=== PATIENT | male | born 1965 | race Two or more races ===

== ENCOUNTER 2016-11-11 03:08 | Inpatient (IN) | payer MEDICAID, OTHER, SELFPAY ==
[~2016-11-11] VITALS: Ht 188 cm; Wt 84.4 kg
[~2016-11-11 03:08] MED LIST: ADV250INH INH; ALBU1.25 INH; ALBU83IN INH; NICO21PAT TD; PRED20TAB PO; PROA1AER INH; SUDA30TA8 PO
[2016-11-11] MEDS ORDERED: IPRATROPIUM 0.5MG/ALBUTEROL 2.5MG INH SOL UD 3ML (DUONEB)(J7620) As Ordered ONE (03:54)
[2016-11-11 04:06] LABS: BASO # 0.2 K/mm3 (0.0-0.2); BASO % 1.5 % (0.0-1.0); EOS # 0.3 K/mm3 (0.0-0.50); EOS % 2.9 % (0.0-3.0); LARGE UNSTAINED CELL # 0.2 K/mm3 (0.0-0.4); LYMPH # 2.1 K/mm3 (1.5-4.5); LYMPH % 17.1 % (24.0-44.0); MEAN CORPUSCULAR HGB CONC 32.5 g/dl (32.0-36.5); MEAN CORPUSCULAR VOLUME 101.5 fl (80.0-96.0); MONO # 0.5 K/mm3 (0.0-0.8); MONO % 4.4 % (0.0-5.0); NEUTROPHILS # 7.8 K/mm3 (1.8-7.7); NEUTROPHILS % 72.1 % (36.0-66.0); PLATELET COUNT, AUTOMATED 286 k/mm3 (150-450); RED CELL DISTRIBUTION WIDTH 14.5 % (11.5-14.5); WHITE BLOOD COUNT 10.8 K/mm3 (4.0-10.0)
[2016-11-11] MEDS ORDERED: methylPREDNISolone INJ 125 MG/2 ML VIAL (J2930) As Ordered ONE (04:06)
[2016-11-11 04:26] LABS: ANION GAP 8 MEQ/L (8-16); BLOOD UREA NITROGEN 11 MG/DL (7-18); CALCIUM LEVEL 8.9 MG/DL (8.5-10.1); CARBON DIOXIDE LEVEL 30 MEQ/L (21-32); CHLORIDE LEVEL 107 MEQ/L (98-107); CREATININE FOR GFR 0.68 MG/DL (0.70-1.30); GLOMERULAR FILTRATION RATE > 60.0 (>56); GLUCOSE, FASTING 97 MG/DL (70-105); SODIUM LEVEL 145 MEQ/L (136-145)
[2016-11-11 04:31] LABS: ABG BASE EXCESS 1.8 (-2.0-2.0); ABG DEVICE NASAL CANN; ABG HCO3 27.2 MEQ/L (22.0-26.0); ABG PARTIAL PRESSURE CO2 45.1 mmHg (35.0-45.0); ABG TOTAL CO2 28.6 MEQ/L (22.0-29.0); ABG pH (ARTERIAL) 7.398 UNITS (7.350-7.450)
[2016-11-11 04:36] LABS: ALBUMIN 3.8 GM/DL (3.2-5.2); ALBUMIN/GLOBULIN RATIO 1.19 (1.00-1.93); ALKALINE PHOSPHATASE 86 U/L (45-117); ALT/SGPT 25 U/L (12-78); AST/SGOT 19 U/L (15-37); BILIRUBIN,DIRECT 0.1 MG/DL (0.0-0.2); BILIRUBIN,TOTAL 0.5 MG/DL (0.2-1.0)
[2016-11-11 05:24] LABS: AMPHETAMINES LEVEL URINE NEGATIVE (NEGATIVE); BENZODIAZEPINES URINE NEGATIVE (NEGATIVE); COCAINE METABOLITE URINE NEGATIVE (NEGATIVE); CONTROL LINE INT CTR LINE PRESENT; METHADONE URINE NEGATIVE (NEGATIVE); OPIATES URINE NEGATIVE (NEGATIVE); TRICYCLIC ANTIDEPRESS URINE NEGATIVE (NEGATIVE)
[2016-11-11] MEDS ORDERED: LevoFLOXacin 500 MG TABLET As Ordered ONE (05:57)
[2016-11-11] MEDS ORDERED: LevoFLOXacin 250 MG TABLET As Ordered ONE (05:57)
[2016-11-11] MEDS ORDERED: ALBUTEROL 90 MCG/ACT 8GM HFA INHALER As Ordered ONE (09:03)
--- NOTE | 2016-11-11 09:27 | ECGEPIP ---
Stationary ECG Study [facility] - ED Test Date: 2016-11-11 Pat Name: FANG TANNER Department: Room: - Gender: M Piecer Up: latricia : 1965 Requested By: SIOBHAN Dexter Order Number: [id number] Reading MD: Kane Ariza Measurements Intervals [place] Rate: 103 P: 76 UT: 139 QRS: 66 QRSD: 87 T: 64 QT: 332 QTc: 435 Interpretive Statements [employer] RBBB Electronically Signed On 11-11-2016 9:27:27 EST by Kane Ariza
--- NOTE | 2016-11-11 09:27 | REP ---
Chest x-ray: Two views. History: Cough. Comparison chest x-ray February 20, 2016. Findings: The lungs are hyperinflated consistent with some degree of COPD as before. Pleural angles are sharp. No infiltrate is seen. Oxygen delivery tubing is noted. Heart size is normal. Pulmonary vasculature is not increased. Impression: Hyperinflation consistent with COPD. No acute disease. Signed by Ousmane Knott MD 11/11/2016 10:23 A
[2016-11-11] MEDS ORDERED: predniSONE 20 MG TAB As Ordered ONE (18:34)
[2016-11-11] MEDS ORDERED: diphenhydrAMINE 25 MG CAP As Ordered ONE (22:16)
[2016-11-12] MEDS ORDERED: diphenhydrAMINE 25 MG CAP As Ordered ONE (03:57)
[2016-11-12] MEDS ORDERED: LevoFLOXacin 500 MG TABLET As Ordered ONE (07:52)
[2016-11-12] MEDS ORDERED: LevoFLOXacin 250 MG TABLET As Ordered ONE (07:52)
[2016-11-12] MEDS ORDERED: NICOTINE 21MG/24HR 1 EA TRANSDERMAL As Ordered ONE (11:08)
[2016-11-12] MEDS ORDERED: HYDR1TAB97 PO (12:52)
[2016-11-12] MEDS ORDERED: ALBU83IN INH (12:52)
[2016-11-12] MEDS ORDERED: ALBUTEROL 90 MCG/ACT 8GM HFA INHALER As Ordered ONE (13:04)
--- NOTE | 2016-11-12 14:00 | EDDOCDS ---
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 Assessment: Cooperative. kb5 03:30 Psych Safety Check: Location: Psych Room. Visual Assessment: Cooperative. kb5 03:34 Patient visited by Josr Segovia PCA. kb5 03:36 Patient visited by Bre Song RN. af2 03:45 Psych Safety Check: Location: Psych Room. Visual Assessment: Cooperative. kb5 03:46 Patient visited by Josr Segovia, SALES ACCOUNT LEADER. kb5 04:00 Psych Safety Check: Location: Psych Room. Visual Assessment: Cooperative. kb5 04:03 Patient visited by Lesli Segoviaopher SALES ACCOUNT LEADER. kb5 04:15 Patient visited by Lesli Segoviaopher SALES ACCOUNT LEADER. kb5 04:15 Psych Safety Check: Location: Psych Room. Visual Assessment: Cooperative. kb5 04:27 Patient visited by Erin Ulloa LPN. ka4 04:29 Patient visited by Erin Ulloa LPN. ka4 04:30 Patient visited by Josr Segovia SALES ACCOUNT LEADER. kb5 04:30 Psych Safety Check: Location: Psych Room. Visual Assessment: Cooperative. kb5 04:45 Psych Safety Check: Location: Psych Room. Visual Assessment: Cooperative. kb5 04:48 Patient visited by Josr Segovia SALES ACCOUNT LEADER. kb5 05:00 Psych Safety Check: Location: Psych Room. Visual Assessment: Cooperative. kb5 05:03 Patient visited by Josr Segovia SALES ACCOUNT LEADER. kb5 05:15 Patient visited by Josr Segovia SALES ACCOUNT LEADER. kb5 05:15 Psych Safety Check: Location: Psych Room. Visual Assessment: Cooperative. kb5 05:27 Patient visited by Erin Ulloa LPN. ka4 05:30 Patient visited by Josr Segovia SALES ACCOUNT LEADER. kb5 05:30 Psych Safety Check: Location: Psych Room. Visual Assessment: Cooperative. kb5 05:45 Patient visited by Bre Song RN. af2 05:45 Psych Safety Check: Location: Psych Room. Visual Assessment: Cooperative. kb5 05:46 Patient visited by Josr Segovia SALES ACCOUNT LEADER. kb5 06:00 Psych Safety Check: Location: Psych Room. Visual Assessment: Cooperative. kb5 06:08 Patient visited by Josr Segovia SALES ACCOUNT LEADER. kb5 06:15 Psych Safety Check: Location: Psych Room. Visual Assessment: Cooperative. kb5 06:16 Patient visited by Josr Segovia SALES ACCOUNT LEADER. kb5 06:19 Patient visited by Erin Ulloa LPN. ka4 06:30 Psych Safety Check: Location: Psych Room. Visual Assessment: Cooperative. kb5 06:31 Patient visited by Josr Segovia PCA. kb5 06:45 Psych Safety Check: Location: Psych Room. Visual Assessment: Cooperative. kb5 06:46 Patient visited by Josr Segovia PCA. kb5 07:01 Patient visited by Josr Segovia PCA. kb5 07:16 Patient visited by Jimy Roblero Security Aide. pjf 07:23 Primary Nurse role handed off by Erin Ulloa LPN deg 07:32 Patient visited by Jimy Roblero Security Aide. pjf 07:45 Psych Safety Check: Location: Psych Room. Visual Assessment: Cooperative. pjf 08:00 Psych Safety Check: Location: Psych Room. Visual Assessment: Cooperative. pjf 08:02 Patient visited by Alphonso Caballero RN. jmk 08:18 Patient visited by Jimy Roblero Security Aide. pjf 08:34 Patient visited by Surinder Dunbar. dem1 08:50 Patient visited by Surinder Dunbar. dem1 09:01 Patient visited by Jimy Roblero, Security Aide. pjf 09:15 Patient visited by Jimy Roblero, Security Aide. pjf 09:45 Psych Safety Check: Location: Psych Room. Visual Assessment: Cooperative. pjf 09:53 Patient visited by Jimy Roblero, Security Aide. pjf 10:16 Patient visited by Jimy Roblero, Security Aide. pjf 10:38 Patient visited by Jimy Roblero Security Aide. pjf 10:53 Patient visited by Jimy Roblero Security Aide. pjf 11:10 Patient visited by Jimy Roblero, Security Aide. pjf 11:56 Patient visited by Jimy Roblero, Security Aide. pjf 12:10 Attending Physician role handed off by Siobhan Guo DO br1 12:10 Luis Antonio Middleton MD is Attending Physician. br1 12:11 E Legal paperwork was scanned into [employer] and attached to record. ml4 12:12 Arsenio Raza is Hospitalizing Provider. br1 12:30 Patient visited by Vinita Oneil PCA. jlf 12:49 Patient visited by Jimy Roblero Security Aide. pjf 13:02 T-Sheet-- Draft Copy was scanned into [employer] and attached to record. gb 13:13 Patient visited by Jimy Roblero Security Aide. pjf 13:28 Patient visited by Jimy Roblero Security Aide. pjf 13:45 Patient visited by Jimy Roblero Security Aide. pjf 13:48 The patient / caregiver is instructed regarding the plan of care and ED course. mk4 13:48 No IV's were initiated during this patient's visit. No procedures done that require mk4 assistance. Administered Medications: 11/11 03:57 Drug: Albuterol-Ipratropium 1 neb [ipratropium-albuterol 0.5 mg-3 mg(2.5 mg base)/3 mL lf2 nebulization soln (1 neb)] Route: Nebulizer; 04:00 Drug: Albuterol-Ipratropium 1 neb [ipratropium-albuterol 0.5 mg-3 mg(2.5 mg base)/3 mL lf2 nebulization soln (1 neb)] Route: Nebulizer; 04:10 Drug: Albuterol-Ipratropium 1 neb [ipratropium-albuterol 0.5 mg-3 mg(2.5 mg base)/3 mL lf2 nebulization soln (1 neb)] Route: Nebulizer; 04:11 Drug: Solu-MEDROL 125 mg [Solu-Medrol 500 mg intravenous solution (125 mg)] Route: IVP; lf1 Site: left forearm; 06:28 Drug: levofloxacin 750 mg [levofloxacin 250 mg tablet (3 tabs)] {Note: 1-500mg tab and cp1 1-250mg tab given.} Route: PO; 09:08 Drug: Ventolin 2 puffs [Ventolin HFA 90 mcg/actuation aerosol inhaler (2 puffs)] Route: dsf Inhalation; 13:16 Drug: Ventolin 2 puffs [Ventolin HFA 90 mcg/actuation aerosol inhaler (2 puffs)] Route: dsf Inhalation; 17:00 Drug: Ventolin 2 puffs [Ventolin HFA 90 mcg/actuation aerosol inhaler (2 puffs)] Route: dsf Inhalation; 18:36 Drug: predniSONE 60 mg [prednisone 20 mg tablet (3 tabs)] Route: PO; dsf 21:50 Drug: Ventolin 2 puffs [Ventolin HFA 90 mcg/actuation aerosol inhaler (2 puffs)] Route: ka4 Inhalation; 22:19 Drug: diphenhydrAMINE 25 mg [diphenhydramine 25 mg capsule (1 caps)] Route: PO; ka4 11/12 01:57 Follow up: Response: No Adverse Reaction ka4 02:11 Drug: Ventolin 2 puffs [Ventolin HFA 90 mcg/actuation aerosol inhaler (2 puffs)] Route: ka4 Inhalation; 04:00 Drug: diphenhydrAMINE 25 mg [diphenhydramine 25 mg capsule (1 caps)] Route: PO; ka4 04:32 Follow up: Response: No Adverse Reaction; No significant change. ka4 05:56 Drug: Ventolin 2 puffs [Ventolin HFA 90 mcg/actuation aerosol inhaler (2 puffs)] Route: ka4 Inhalation; 07:59 Drug: levofloxacin 750 mg [levofloxacin 250 mg tablet (3 tabs)] Route: PO; k 11:18 Drug: Nicotine 1 applic [nicotine 21 mg/24 hr daily transdermal patch (1 patches)] 4 Route: Transdermal; Site: left upper arm; 13:10 Drug: Ventolin 2 puffs [Ventolin HFA 90 mcg/actuation aerosol inhaler (2 puffs)] Route: mk4 Inhalation; Attachments: 11/12 12:11 MHE Legal paperwork ml4 Intake: 11/11 14:42 PO: 360.00ml (Milk); Total: 360.00ml. dsf 14:42 PO: 240.00ml (Juice); Total: 600.00ml. dsf RT: 03:57 Initial Med Neb Given as ordered Patient was instructed and evaluated on procedure lf2 Patient tolerated procedure well without adverse effect. O2 via nasal cannula \\T\\ 2L/min. Respiratory: Airway is patent Respiratory effort is even, unlabored, relaxed, Respiratory pattern is regular symmetrical, trachea is midline 04:13 Subsequent Med Neb Given as ordered Patient tolerated procedure well without adverse lf2 effect. Respiratory: Breath sounds are diminished bilaterally. Breath sounds with wheezes bilaterally. 04:14 ABG's drawn from right radial artery allens test done and positive pressure held for 5 lf2 minutes no bleeding noted pressure bandage applied specimen sent pt. tolerated well. Subsequent Med Neb Given as ordered Patient tolerated procedure well without adverse effect. O2 via nasal cannula \\T\\ 2L/min. Respiratory: Breath sounds with wheezes bilaterally. at expiration. Order Results: Lab Order: -Blood Culture; SPEC'M 11/11/16 03:58 Test: BLOOD CULTURE; Value: No growth after 24 hours . All specimens observed; Status: F Test: BLOOD CULTURE; Value: for 7 days. Results final at that time.; Status: F Lab Order: B-Type Natiuretic Peptide; SPEC'M 11/11/16 03:58 Test: BRAIN NATRIURETIC PEPTIDE; Value: 16.7; Range: <100; Units: PG/ML; Status: F Lab Order: Basic Metabolic Profile; SPEC'M 11/11/16 03:58 Test: GLUCOSE, FASTING; Value: 97; Range: 70-105; Units: MG/DL; Status: F Test: BLOOD UREA NITROGEN; Value: 11; Range: 7-18; Units: MG/DL; Status: F Test: CREATININE FOR GFR; Value: 0.68; Range: 0.70-1.30; Abnormal: Below low normal; Units: MG/DL; Status: F Test: GLOMERULAR FILTRATION RATE; Value: > 60.0; Range: >56; Status: F Test: SODIUM LEVEL; Value: 145; Range: 136-145; Units: MEQ/L; Status: F Test: POTASSIUM SERUM; Value: 4.0; Range: 3.5-5.1; Units: MEQ/L; Status: F Test: CHLORIDE LEVEL; Value: 107; Range: 98-107; Units: MEQ/L; Status: F Test: CARBON DIOXIDE LEVEL; Value: 30; Range: 21-32; Units: MEQ/L; Status: F Test: ANION GAP; Value: 8; Range: 8-16; Units: MEQ/L; Status: F Test: CALCIUM LEVEL; Value: 8.9; Range: 8.5-10.1; Units: MG/DL; Status: F Test Note: ; Units are mL/min/1.73 m2 Chronic Kidney Disease Staging per NKF: Stage I & II GFR >=60 Normal to Mildly Decreased Stage III GFR 30-59 Moderately Decreased Stage IV GFR 15-29 Severely Decreased Stage V GFR <15 Very Little GFR Left ESRD GFR <15 on SECURITY ASSESSOR Lab Order: CBC with Diff; SPEC'M 11/11/16 03:58 Test: WHITE BLOOD COUNT; Value: 10.8; Range: 4.0-10.0; Abnormal: Above high normal; Units: K/mm3; Status: F Test: RED BLOOD COUNT; Value: 4.51; Range: 4.30-6.10; Units: M/mm3; Status: F Test: HEMOGLOBIN; Value: 14.9; Range: 14.0-18.0; Units: g/dl; Status: F Test: HEMATOCRIT; Value: 45.8; Range: 42.0-52.0; Units: %; Status: F Test: MEAN CORPUSCULAR VOLUME; Value: 101.5; Range: 80.0-96.0; Abnormal: Above high normal; Units: fl; Status: F Test: MEAN CORPUSCULAR HEMOGLOBIN; Value: 33.0; Range: 27.0-33.0; Units: pg; Status: F Test: MEAN CORPUSCULAR HGB CONC; Value: 32.5; Range: 32.0-36.5; Units: g/dl; Status: F Test: RED CELL DISTRIBUTION WIDTH; Value: 14.5; Range: 11.5-14.5; Units: %; Status: F Test: PLATELET COUNT, AUTOMATED; Value: 286; Range: 150-450; Units: k/mm3; Status: F Test: NEUTROPHILS %; Value: 72.1; Range: 36.0-66.0; Abnormal: Above high normal; Units: %; Status: F Test: LYMPH %; Value: 17.1; Range: 24.0-44.0; Abnormal: Below low normal; Units: %; Status: F Test: MONO %; Value: 4.4; Range: 0.0-5.0; Units: %; Status: F Test: EOS %; Value: 2.9; Range: 0.0-3.0; Units: %; Status: F Test: BASO %; Value: 1.5; Range: 0.0-1.0; Abnormal: Above high normal; Units: %; Status: F Test: LARGE UNSTAINED CELL %; Value: 2.0; Range: 0.0-4.0; Units: %; Status: F Test: NEUTROPHILS #; Value: 7.8; Range: 1.8-7.7; Abnormal: Above high normal; Units: K/mm3; Status: F Test: LYMPH #; Value: 2.1; Range: 1.5-4.5; Units: K/mm3; Status: F Test: MONO #; Value: 0.5; Range: 0.0-0.8; Units: K/mm3; Status: F Test: EOS #; Value: 0.3; Range: 0.0-0.50; Units: K/mm3; Status: F Test: BASO #; Value: 0.2; Range: 0.0-0.2; Units: K/mm3; Status: F Test: LARGE UNSTAINED CELL #; Value: 0.2; Range: 0.0-0.4; Units: K/mm3; Status: F Lab Order: -Arterial Blood Gas; [facility]' 11/11/16 03:57 Test: ABG pH (ARTERIAL); Value: 7.398; Range: 7.350-7.450; Units: UNITS; Status: F Test: ABG PARTIAL PRESSURE CO2; Value: 45.1; Range: 35.0-45.0; Abnormal: Above high normal; Units: mmHg; Status: F Test: ABG PARTIAL PRESSURE O2; Value: 74.0; Range: 75.0-100.0; Abnormal: Below low normal; Units: mmHg; Status: F Test: ABG TOTAL CO2; Value: 28.6; Range: 22.0-29.0; Units: MEQ/L; Status: F Test: ABG HCO3; Value: 27.2; Range: 22.0-26.0; Abnormal: Above high normal; Units: MEQ/L; Status: F Test: ABG BASE EXCESS; Value: 1.8; Range: -2.0-2.0; Status: F Test: ABG STANDARD HCO3; Value: 26.0; Range: 22.0-26.0; Units: MEQ/L; Status: F Test: ABG O2 SATURATION; Value: 94.9; Range: 95.0-99.0; Abnormal: Below low normal; Units: %; Status: F Test: ABG DEVICE; Value: NASAL COLT; Status: F Lab Order: Acetaminophen Level; SPEC'M 11/11/16 03:58 Test: ACETAMINOPHEN LEVEL; Value: < 2.0; Range: 10.0-30.0; Abnormal: Below low normal; Units: UG/ML; Status: F Lab Order: Drug Eval Toxicology ED Only; SPEC'M 11/11/16 05:06 Test: AMPHETAMINES LEVEL URINE; Value: NEGATIVE; Range: NEGATIVE; Status: F Test: BARBITURATES URINE; Value: NEGATIVE; Range: NEGATIVE; Status: F Test: BENZODIAZEPINES URINE; Value: NEGATIVE; Range: NEGATIVE; Status: F Test: CANNABINOIDS URINE; Value: NEGATIVE; Range: NEGATIVE; Status: F Test: COCAINE METABOLITE URINE; Value: NEGATIVE; Range: NEGATIVE; Status: F Test: METHADONE URINE; Value: NEGATIVE; Range: NEGATIVE; Status: F Test: OPIATES URINE; Value: NEGATIVE; Range: NEGATIVE; Status: F Test: TRICYCLIC ANTIDEPRESS URINE; Value: NEGATIVE; Range: NEGATIVE; Status: F Test Note: ; ALL PRESUMPTIVE POSITIVE FINDINGS ARE UNCONFIRMED NORMAL VALUES THRESHOLD IN NG/ML AMPHETAMINES 1000 METHAMPHETAMINES 1000 BARBITURATES 300 BENZODIAZEPINES 300 CANNABINOIDS (THC) 50 COCAINE METABOLITE 300 METHADONE 300 OPIATES 300 PHENCYCLIDINE 25 TRICYCLIC ANTIDEPRESSANTS 1000 RESULTS ARE FOR MEDICAL PURPOSES ONLY. ALL URINE SPECIMENS WILL BE SAVED FOR 3 DAYS. IF CONFIRMATION OF A PRESUMPTIVE POSTIVE SCREEN RESULT IS DESIRED, CALL CHEMISTRY ([phone]) AND REQUEST URINE TO BE SENT TO REFERENCE LAB. FOR A LIST OF CLOSELY RELATED COMPOUNDS PLEASE CALL THE LAB. Lab Order: Ethyl Alcohol (ethanol); SPEC'M 11/11/16 03:58 Test: ETHYL ALCOHOL (ETHANOL); Value: 0.110; Range: 0.000-0.010; Abnormal: Above high normal; Units: %; Status: F Lab Order: Liver Profile; SPEC'M 11/11/16 03:58 Test: AST/SGOT; Value: 19; Range: 15-37; Units: U/L; Status: F Test: ALT/SGPT; Value: 25; Range: 12-78; Units: U/L; Status: F Test: ALKALINE PHOSPHATASE; Value: 86; Range: 45-117; Units: U/L; Status: F Test: BILIRUBIN,TOTAL; Value: 0.5; Range: 0.2-1.0; Units: MG/DL; Status: F Test: BILIRUBIN,DIRECT; Value: 0.1; Range: 0.0-0.2; Units: MG/DL; Status: F Test: TOTAL PROTEIN; Value: 7.0; Range: 6.4-8.2; Units: GM/DL; Status: F Test: ALBUMIN; Value: 3.8; Range: 3.2-5.2; Units: GM/DL; Status: F Test: ALBUMIN/GLOBULIN RATIO; Value: 1.19; Range: 1.00-1.93; Status: F Lab Order: Salicylate Level; SPEC'M 11/11/16 03:58 Test: SALICYLATE LEVEL; Value: 2.1; Range: 5.0-30.0; Abnormal: Below low normal; Units: MG/DL; Status: F Lab Order: Thyroid Stimulating Hormone; SPEC'M 11/11/16 03:58 Test: THYROID STIMULATING HORMONE; Value: 1.190; Range: 0.358-3.740; Units: uIU/ML; Status: F Lab Order: BLOOD CULTURES; SPEC'M 11/11/16 03:58 Test: BLOOD CULTURE; Value: No growth after 24 hours . All specimens observed; Status: F Test: BLOOD CULTURE; Value: for 7 days. Results final at that time.; Status: F Radiology Order: Chest, 2 View (pa\\E\\lat) Test: Chest, 2 View (pa\\E\\lat) REASON FOR EXAMINATION: Cough; Chest x-ray: Two views.; ; History: Cough.; ; Comparison chest x-ray February 20, 2016.; ; Findings: The lungs are hyperinflated consistent with some degree of COPD as; before. Pleural angles are sharp. No infiltrate is seen. Oxygen delivery; tubing is noted. Heart size is normal. Pulmonary vasculature is not increased.; ; Impression:; ; Hyperinflation consistent with COPD. 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 RBBB; ; ; Electronically Signed On 11-11-2016 9:27:27 EST by Kane Ariza; Outcome: 11/12 12:12 Decision to Hospitalize by Provider. br1 13:47 Discharge Assessment: Patient awake, alert and oriented x 3. No cognitive and/or mk4 functional deficits noted. Patient verbalized understanding of disposition instructions. Patient awake and alert. patient administered narcotics - no. The following High Risk Discharge criteria are identified: None. Admitted to Psych accompanied by tech, via wheelchair, with chart. Condition: stable. No special radiology studies were completed. Property left with pt per riky PORTER. 13:59 Patient left the ED. mk4 Signatures: Dispatcher [employer] EDMS Matthew Arita MD MD ml Anita Hood, Warehouse Associate Driver Unit deg Alphonso Caballero,RN RN jmk Kori Lutz, PSA PSA rb Shilpa Monsalve, Reg Reg gb Annika, Jimy, Security Aide [facility], Ajay Silverman, Warehouse Associate Driver Unit ml3 Beatriz Duff, PSA PSA ml4 Josr Segovia, SALES ACCOUNT LEADER SALES ACCOUNT LEADER kb5 Beth Molina,RN RN lf1 Siobhan Guo, DO mm11 Luis Antonio Middleton MD MD br1 Pamella Henson,JUNIOR ORACLE DBA JUNIOR ORACLE DBA cp1 Christina Sparrow, SALES ACCOUNT LEADER SALES ACCOUNT LEADER Trinity Gar,RN RN dsf Mariam Grimm,RN RN Surinder Ji dem1 Eduar Kearney dpm Chiqui Devi, SALES ACCOUNT LEADER SALES ACCOUNT LEADER tmm1 Livia Pitts RN RN mk4 Vinita Oneil, SALES ACCOUNT LEADER SALES ACCOUNT LEADER jlf Erin Ulloa,JUNIOR ORACLE DBA JUNIOR ORACLE DBA ka4 Sahra Dickerson,RN RN mlc Bre Song,RN RN af2 Beth Manning,RT RT lf2 Viviana South, Reg Reg hs2 Joselito Felder, SALES ACCOUNT LEADER SALES ACCOUNT LEADER jmv Corrections: (The following items were deleted from the chart) 11/11 09:04 08:32 Mental Health history: rb rb 14:20 14:19 General: Appears to be sleeping. dsf dsf 14:19 Respiratory: Airway is patent Respiratory effort is even, unlabored, Respiratory dsf pattern is regular, symmetrical, dsf 14:19 Derm: Skin is pink, warm & dry. dsf dsf 11/12 12:09 09:10 Respiratory: Airway is patent Respiratory effort is even, unlabored, harsh non mk4 productive cough, requesting nitro patch mk4 MTDD
--- NOTE | 2016-11-12 14:00 | EDDOCDS ---
Physician Documentation [facility] Name: Godwin Amado Age: 50 yrs Sex: Male : 1965 Arrival Date: 11/11/2016 Time: 03:08 Bed OBSERVATION Private MD: NO PRIMARY PHYSICIAN, . Disposition: 11/12/16 12:12 Hospitalization ordered by Arsenio Raza for Inpatient Admission. Preliminary diagnosis are Suicidal ideations, Chronic obstructive pulmonary disease with (acute) exacerbation. - Bed requested for Admit. - Status is Inpatient Admission. mk4 - Condition is Stable. - Problem is new. - Symptoms are unchanged. Historical: - Allergies: No known drug Allergies; - Home Meds: 1. Albuterol nebs 2. albuterol inhaler 3. Vicodin 5/500 10mg Oral 7 or 8 per day - PMHx: Alcoholism; Colitis; COPD; Pneumonia; - PSHx: Appendectomy; Hernia repair; right arm surgery; - Social history: Smoking status: Patient uses tobacco products, current every day smoker. Patient uses alcohol Vicodin , No barriers to communication noted, The patient speaks fluent Ukrainian, Speaks appropriately for age, Preferred Language: Ukrainian. - Family history: Not pertinent. - : The pt / caregiver states he / she is not on anticoagulants. Home medication list is obtained from the patient. - Exposure Risk Screening:: None identified. Vital Signs: 11/11 03:10 BP 138 / 76 (auto/); lf1 03:12 Pulse 86 MON; Pulse Ox 94% ; lf1 03:14 BP 138 / 76; Pulse 88; Resp 25; Temp 96.9(O); Pulse Ox 94% on R/A; Weight 90.72 kg / jmv 200 lbs (R); Height 6 ft. 2 in. (187.96 cm) (R); Pain 0/10; 03:48 BP 180 / 91 (auto/); lf1 03:50 Pulse 90 MON; Pulse Ox 95% ; lf1 03:56 BP 171 / 86 (auto/); lf1 03:57 Pulse 90 MON; Pulse Ox 94% ; lf1 04:00 BP 168 / 89 (auto/); lf1 04:01 Pulse 90 MON; Resp 24; Pulse Ox 94% ; lf1 04:15 BP 144 / 89 (auto/); lf1 04:16 Pulse 86 MON; Pulse Ox 92% ; lf1 04:30 BP 151 / 98 (auto/); lf1 04:31 Pulse 90 MON; Pulse Ox 88% ; lf1 04:32 Pulse 90 MON; Pulse Ox 88% ; lf1 04:45 BP 129 / 60 (auto/); lf1 04:46 Pulse 82 MON; Pulse Ox 92% ; lf1 05:00 BP 156 / 86 (auto/); lf1 05:01 Pulse 80 MON; Pulse Ox 90% ; lf1 05:15 BP 155 / 76 (auto/); lf1 05:15 Pulse 98 MON; Pulse Ox 94% ; lf1 05:28 Pulse 98 MON; Resp 24; Pulse Ox 90% ; lf1 09:09 BP 175 / 95; Pulse 85; Resp 20; Temp 98.5(T); Pulse Ox 93% on R/A; Pain 0/10; dsf 13:21 BP 141 / 82; Pulse 95; Resp 20; Temp 96.5(T); Pulse Ox 93% on R/A; Pain 0/10; dsf 16:43 BP 158 / 66; Pulse 100; Resp 16; Temp 96.8(T); Pulse Ox 95% on R/A; Pain 0/10; dsf 21:59 BP 172 / 85 LA Sitting (auto/reg); Pulse 84 MON; Resp 18 S; Temp 98.1(T); Pulse Ox 94% ka4 on R/A; Pain 0/10; 11/12 05:56 BP 155 / 76; Pulse 73; Resp 22; Temp 98.8(O); Pulse Ox 94% on R/A; Pain 0/10; kb5 13:48 BP 152 / 80; Pulse 88; Resp 18; Temp 98; Pulse Ox 95% on R/A; mk4 11/11 03:14 Body Mass Index 25.68 (90.72 kg, 187.96 cm) darielav MDM: 11/11 03:35 Solu-MEDROL 125 mg IVP once ordered. mm11 03:35 -Blood Culture (Adults Only), peripheral from different site, or from device/port/PICC mm11 etc. if present ordered. 03:35 Call Respiratory ordered. mm11 03:35 Estate Attorney/Pulse Ox/q 15 min VS ordered. mm11 03:35 IV Saline Lock ordered. mm11 03:35 Oxygen at 4L/Min NC or Home dosage ordered. mm11 03:35 Rhythm Strip to chart ordered. mm11 03:35 Albuterol-Ipratropium 1 neb Nebulizer every 20 minutes x3 ordered. mm11 03:36 Consult PFS/PSA/Solar Applications Development Engineer ordered. mm11 03:36 Consult PFS/PSA/Solar Applications Development Engineer: Patient's case requires discussion with on-call mm11 Psychiatrist ordered. 03:36 PSA/PFS to call Nursing Dimensional Inspector, to enter patient data on [place] Safe [place] if patient mm11 involuntarily admitted or transferred for SI or HI ordered. 03:36 Confirm accurate psychiatric medication list and times of last dosage ordered. mm11 03:36 Detain Pt Until Medically/PFS Cleared ordered. mm11 03:36 -Blood Culture Ordered. EDMS 03:36 B-Type Natiuretic Peptide Ordered. EDMS 03:36 Basic Metabolic Profile Ordered. EDMS 03:36 CBC with Diff Ordered. EDMS 03:36 -Arterial Blood Gas Ordered. EDMS 03:37 ECG WITH READING ER PHYS+CARDIAG ordered. EDMS 03:37 Call Respiratory complete. ml3 03:37 Acetaminophen Level Ordered. EDMS 03:37 Drug Eval Toxicology ED Only Ordered. EDMS 03:37 Ethyl Alcohol (ethanol) Ordered. EDMS 03:37 Liver Profile Ordered. EDMS 03:37 Salicylate Level Ordered. EDMS 03:37 Thyroid Stimulating Hormone Ordered. EDMS 03:37 Chest, 2 View (pa\E\lat) Ordered. EDMS 03:40 BLOOD CULTURES Ordered. EDMS 03:40 -Blood Culture (Adults Only), peripheral from different site, or from device/port/PICC ml3 etc. if present complete. 04:54 Financial registration complete. hs2 05:02 Basic Metabolic Profile Reviewed. mm11 05:02 CBC with Diff Reviewed. mm11 05:02 -Arterial Blood Gas Reviewed. mm11 05:02 Acetaminophen Level Reviewed. mm11 05:02 Ethyl Alcohol (ethanol) Reviewed. mm11 05:02 Salicylate Level Reviewed. mm11 05:02 B-Type Natiuretic Peptide Reviewed. mm11 05:02 Liver Profile Reviewed. mm11 05:02 Thyroid Stimulating Hormone Reviewed. mm11 05:47 levofloxacin 750 mg PO once ordered. mm11 06:22 [facility] [place] was scanned into Carbonated Content and attached to record. hs2 06:30 REGULAR DIET PLASTIC STEPHENS+DIET ordered. EDMS 07:58 Drug Eval Toxicology ED Only Reviewed. mm11 08:22 ED course: pt signed out to me. cta when listening to lungs. pt with no complaints. ml pending psych disposition. pt with no complaints. mlg. 08:35 Ventolin Inhaler 2 puffs Inhalation every 4 hours ordered. ml 09:05 Consult PFS/PSA/Solar Applications Development Engineer complete. rb 10:09 Consult PFS/PSA/Solar Applications Development Engineer: Patient's case requires discussion with on-call rb Psychiatrist complete. 10:09 PSA/PFS to call Nursing Dimensional Inspector, to enter patient data [place] Safe [place] if patient rb involuntarily admitted or transferred for SI or HI complete. 11:18 REGULAR DIET PLASTIC STEPHENS+DIET ordered. EDMS 11:35 predniSONE 60 mg PO once; administer with food or milk ordered. ml 13:16 Ventolin Inhaler 2 puffs Inhalation once ordered. dsf 16:41 REGULAR DIET PLASTIC STEPHENS+DIET ordered. EDMS 16:58 Ventolin Inhaler 2 puffs Inhalation once ordered. dsf 19:24 Awaiting: The patient is awaiting psychiatric admission or transfer. All labs and mm11 investigations have been reviewed. The vital signs have been reviewed. The patient remains medically cleared for disposition. 21:50 Ventolin Inhaler 2 puffs Inhalation once ordered. ka4 22:07 diphenhydrAMINE 25 mg PO once ordered. mm11 11/12 02:01 Ventolin Inhaler 2 puffs Inhalation once ordered. ka4 03:53 diphenhydrAMINE 25 mg PO once ordered. mm11 04:08 -Blood Culture Reviewed. mm11 04:08 BLOOD CULTURES Reviewed. mm11 04:08 Chest, 2 View (pa\E\lat) Reviewed. mm11 04:08 EKG-ADULT Reviewed. mm11 04:33 REGULAR DIET ROOM SERVICE ED+DIET ordered. EDMS 05:56 Ventolin Inhaler 2 puffs Inhalation once ordered. ka4 07:04 levofloxacin 750 mg PO once ordered. mm11 11:05 REGULAR DIET PLASTIC STEPHENS+DIET ordered. EDMS 11:07 Nicotine Patch 21 mg/24 hr 1 applic Transdermal once ordered. mk4 11:48 REGULAR DIET ROOM SERVICE ED+DIET ordered. EDMS 12:10 Admit to [facility]: ordered. EDMS 12:11 [facility] Legal paperwork was scanned into Carbonated Content and attached to record. ml4 13:02 T-Sheet-- Draft Copy was scanned into Carbonated Content and attached to record. gb 13:10 Ventolin Inhaler 2 puffs Inhalation once ordered. mk4 Administered Medications: 11/11 03:57 Drug: Albuterol-Ipratropium 1 neb [ipratropium-albuterol 0.5 mg-3 mg(2.5 mg base)/3 mL lf2 nebulization soln (1 neb)] Route: Nebulizer; 04:00 Drug: Albuterol-Ipratropium 1 neb [ipratropium-albuterol 0.5 mg-3 mg(2.5 mg base)/3 mL lf2 nebulization soln (1 neb)] Route: Nebulizer; 04:10 Drug: Albuterol-Ipratropium 1 neb [ipratropium-albuterol 0.5 mg-3 mg(2.5 mg base)/3 mL lf2 nebulization soln (1 neb)] Route: Nebulizer; 04:11 Drug: Solu-MEDROL 125 mg [Solu-Medrol 500 mg intravenous solution (125 mg)] Route: IVP; lf1 Site: left forearm; 06:28 Drug: levofloxacin 750 mg [levofloxacin 250 mg tablet (3 tabs)] {Note: 1-500mg tab and cp1 1-250mg tab given.} Route: PO; 09:08 Drug: Ventolin 2 puffs [Ventolin HFA 90 mcg/actuation aerosol inhaler (2 puffs)] Route: dsf Inhalation; 13:16 Drug: Ventolin 2 puffs [Ventolin HFA 90 mcg/actuation aerosol inhaler (2 puffs)] Route: dsf Inhalation; 17:00 Drug: Ventolin 2 puffs [Ventolin HFA 90 mcg/actuation aerosol inhaler (2 puffs)] Route: dsf Inhalation; 18:36 Drug: predniSONE 60 mg [prednisone 20 mg tablet (3 tabs)] Route: PO; dsf 21:50 Drug: Ventolin 2 puffs [Ventolin HFA 90 mcg/actuation aerosol inhaler (2 puffs)] Route: ka4 Inhalation; 22:19 Drug: diphenhydrAMINE 25 mg [diphenhydramine 25 mg capsule (1 caps)] Route: PO; ka4 11/12 01:57 Follow up: Response: No Adverse Reaction 4 02:11 Drug: Ventolin 2 puffs [Ventolin HFA 90 mcg/actuation aerosol inhaler (2 puffs)] Route: ka4 Inhalation; 04:00 Drug: diphenhydrAMINE 25 mg [diphenhydramine 25 mg capsule (1 caps)] Route: PO; 4 04:32 Follow up: Response: No Adverse Reaction; No significant change. 4 05:56 Drug: Ventolin 2 puffs [Ventolin HFA 90 mcg/actuation aerosol inhaler (2 puffs)] Route: ka4 Inhalation; 07:59 Drug: levofloxacin 750 mg [levofloxacin 250 mg tablet (3 tabs)] Route: PO; [facility] 11:18 Drug: Nicotine 1 applic [nicotine 21 mg/24 hr daily transdermal patch (1 patches)] 4 Route: Transdermal; Site: left upper arm; 13:10 Drug: Ventolin 2 puffs [Ventolin HFA 90 mcg/actuation aerosol inhaler (2 puffs)] Route: mk4 Inhalation; Signatures: Dispatcher [employer] [facility] Matthew Arita MD MD ml Bolivar, Kori, PSA PSA rb Shilpa Monsalve, Reg Reg gb Ajay Cooley, Arts Administrator Unit ml3 Beatriz Duff, PSA PSA ml4 Beth Molina RN RN lf1 Lupillo Guo, DO CORBIN mm11 Luis Antonio Middleton MD MD br1 Trinity Narayan RN RN dsf Livia Pitts RN RN mk4 Erin Ulloa LPN FLAT EXAMINER ka4 Viviana South, Reg Reg hs2 Alphonso Caballero RN, Cheryl LPN cp1 Beth Manning RT lf2 The chart was reviewed and I authenticate all verbal orders and agree with the evaluation and treatment provided.Attachments: 11/11 06:22 [facility] Payment Agreement hs2 13:02 T-Sheet-- Draft Copy MTDD
[2016-11-12 14:56] VITALS: BP 164/80
[2016-11-12 15:35] VITALS: BP 164/80
[2016-11-12] MEDS ORDERED: LORazepam 2 MG TAB PO PRN (16:00)
[2016-11-12] MEDS ORDERED: MOM 30ML SUSPENSION UDC PO PRN (16:00)
[2016-11-12] MEDS ORDERED: THIAMINE 100 MG TAB PO ONE (16:15)
[2016-11-12] MEDS ORDERED: ALBUTEROL SULFATE 2.5 MG/0.5 ML INH NEB SOLN NEB PRN (16:15)
[2016-11-12] MEDS: ALBUTEROL 90 MCG/ACT 8GM HFA INHALER INH PRN (19:13)
[2016-11-12] MEDS: ACETAMINOPHEN TAB 650MG DOSE (2X325MG) PO PRN (22:55)
[2016-11-12] MEDS: traZODone 50 MG TAB PO PRN (22:55)
[2016-11-13 06:02] VITALS: BP 134/83
[2016-11-13] MEDS: ALBUTEROL 90 MCG/ACT 8GM HFA INHALER INH PRN ×2 (08:05→20:26)
[2016-11-13] MEDS: NICOTINE 21MG/24HR 1 EA TRANSDERMAL TD SCH (08:05)
[2016-11-13] MEDS: THIAMINE 100 MG TAB PO SCH ×2 (08:06→20:27)
[2016-11-13] MEDS: MULTIVITAMINS/MINERALS THERAP 1 TAB PO SCH (08:06)
[2016-11-13] MEDS: FOLIC ACID 1 MG TAB PO SCH (08:06)
[2016-11-13] MEDS: ACETAMINOPHEN TAB 650MG DOSE (2X325MG) PO PRN ×3 (08:06→23:06)
[2016-11-13 11:59] VITALS: BP 122/78
--- NOTE | 2016-11-13 11:59 | HPEPDOC ---
Medical History and Physical Date of Admission Nov 12, 2016 at 14:00 History and Physical PCP: [facility] ATTENDING: Dr. Don Harden HPI: 50yoM admitted to [facility] for depressive disorder unspecified, being medically examined today. Patient states he experiences chronic foot pain which has been ongoing many years since he experienced a crush injury to his feet followed by several surgeries. He states he has been treated for chronic pain in his feet and has been seen by pain management including Dr Bowie and more recently [facility] pain management. He has also seen many podiatrists. He has history of allergy to codeine and states he has been tried on Lyrica, gabapentin, Cymbalta all experiencing side effects. He states on his medication list he takes Vicodin 5/500 up to 7 or 8 tablets per day. He does admit that if he is not able to obtain enough tablets for his pain sometimes he will buy them on the street. He states up until the past few months he was using marijuana for his pain however he states he stopped using marijuana 3 months ago. The patient states he is aware that he has an "addictive personality", the patient states that he poured the remaining pills of his Vicodin down the sink prior to his admission. The patient states however that prior to his admission he took 2 tablets of Vicodin. Denies any fevers, chills, weakness, fatigue, LAWLER, CP, SOB, cough, palpitations, abdominal pain, N/V/D or changes in bowel or bladder habits. 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 5 brothers , 4 sisters history of COPD, CHF, one sibling in [place]. Children: Alive, well. ROS: As noted in HPI, otherwise 11pt ROS of systems reviewed and unremarkable PE: GEN: 50yoM, appears stated age. Well-nourished, well developed. No acute distress. Alert and oriented x 3. Pleasant, interactive. HEENT: Normocephalic, atraumatic. Pupils are equal, round, and reactive to light. Extraocular movements are intact. No nystagmus appreciated. Sclera are nonicteric. Conjunctiva without injection. Nose midline. Nasal turbinates without bogginess. EACs both patent BL. TMs both visualized and delgadillo with good cone of light, no bulging or erythema. No facial asymmetry. Moist mucous membranes. Dentition poor. Pharynx pink and moist, no cobblestoning. Neck supple , trachea midline. No lymphadenopathy or thyromegaly appreciated. CHEST: Regular rate and rhythm, +S1, +S2 LUNGS: Decreased BS bilaterally few expiratory wheezes scattered B/L. No rales, or rhonchi. Breathing appears symmetric and easy. Patient is speaking in full sentences. No accessory muscle use. ABD: Round, soft, non-tender, non-distended. +Bowel sounds throughout. No rebound or guarding. No costovertebral angle tenderness. EXT: Pulses 2+ bilaterally dorsalis pedis and radial. No lower extremity edema appreciated. SKIN: [place], dry, warm. Capillary refill <2sec. No rashes. NEURO: Alert and oriented x 3. Cranial nerves III-XII are intact. No focal deficits appreciated. EK11/11/16 sinus tachycardia, left atrial enlargement, incomplete right bundle branch block. A&P: 50yoM admitted to [facility] for depressive disorder unspecified 1. Psych. Plan per Psychiatry. EKG on file. 2. Nicotine dependence. Patch available. 3. Borderline EKG. No cardiac signs or symptoms appreciated on exam, follow with PCP. 4. Follow up with PCP on discharge. [facility]. 5. Substance use. Withdrawal per psychiatry. Continue with MVI, Thiamine, and Folic Acid supplementation. 6. COPD. Continue albuterol inhaler as needed. Continue albuterol nebulizer as needed. 7. Leukocytosis. Patient is asymptomatic. Afebrile. Recheck CBC in a.m. 8. Chronic pain/chronic foot pain. ISTOP reference number [id number]. Patient last received a prescription 4/26/16. This was for oxycodone 5 mg tablets, 12 tablets dispensed, 3 day supply. Patient does not appear to be receiving a routine prescription for Vicodin. Request a copy of last PCP note for our records. Will request pain management opinion as pt has followed with [facility] pain mgmt for this condition. UDS on admission negative for opiates. Continue Tylenol 650 mg every 4 hours as needed. Patient may also use ibuprofen 400 mg Q6 hr as needed. 9. Staff member present throughout exam, Ramses Monroy. Vital Signs Vital Signs Label Value Date Time Patient Temperature 97.2 degrees F 11/12/16 1456 Temperature Source Tympanic 11/12/16 1456 Pulse 82 11/12/16 1456 Respiratory Rate 20 bpm 11/12/16 1456 Blood Pressure Assessment 164/80 (108) 11/12/16 1456 Bedside Pulse Oximetry 94 % 11/12/16 1456 Patient Temperature 97.4 degrees F 11/13/16 0602 Temperature Source Tympanic 11/13/16 0602 Pulse 115 11/13/16 0602 Respiratory Rate 16 bpm 11/13/16 0602 Blood Pressure Assessment 134/83 (100) 11/13/16 0602 Pulse 82 11/12/16 1535 Blood Pressure Assessment 164/80 11/12/16 1535 Item Value Date Time Oxygen Delivery Method Room Air 11/12/16 1456 Laboratory Data Labs 24H Item Value Date Time Sodium Level 145 MEQ/L 11/11/16 0358 Potassium Level 4.0 MEQ/L 11/11/16 0358 Chloride Level 107 MEQ/L 11/11/16 0358 Carbon Dioxide Level 30 MEQ/L 11/11/16 0358 Anion Gap 8 MEQ/L 11/11/16 0358 Blood Urea Nitrogen 11 MG/DL 11/11/16 0358 Creatinine 0.68 MG/DL L 11/11/16 0358 Glomerular Filtration Rate > 60.0 11/11/16 0358 Fasting Glucose 97 MG/DL 11/11/16 0358 Calcium Level 8.9 MG/DL 11/11/16 0358 Total Bilirubin 0.5 MG/DL 11/11/16 0358 Direct Bilirubin 0.1 MG/DL 11/11/16 0358 Aspartate Amino Transf (AST/SGOT) 19 U/L 11/11/16 0358 Alanine Aminotransferase (ALT/SGPT) 25 U/L 1/8/17 0358 Alkaline Phosphatase 86 U/L 11/11/16357 Total Protein 7.0 GM/DL 11/11/16357 Albumin 3.8 GM/DL 11/11/16357 Albumin/Globulin Ratio 1.19 11/11/16357 Thyroid Stimulating Hormone (TSH) 1.190 uIU/ML 11/11/16357 White Blood Count 10.8 K/mm3 H 11/11/16357 Red Blood Count 4.51 M/mm3 11/11/16357 Hemoglobin 14.9 g/dl 11/11/16357 Hematocrit 45.8 % 11/11/16357 Mean Corpuscular Volume 101.5 fl H 11/11/16357 Mean Corpuscular Hemoglobin 33.0 pg 11/11/16357 Mean Corpuscular Hemoglobin Concent 32.5 g/dl 11/11/16357 Red Cell Distribution Width 14.5 % 11/11/16357 Platelet Count 286 k/mm3 11/11/16357 Neutrophils (%) (Auto) 72.1 % H 11/11/16357 Lymphocytes (%) (Auto) 17.1 % L 11/11/16357 Eosinophils (%) (Auto) 2.9 % 11/11/16357 Basophils (%) (Auto) 1.5 % H 11/11/16357 Large Unclassified Cells % 2.0 % 11/11/16357 Neutrophils # (Auto) 7.8 K/mm3 H 11/11/16357 Lymphocytes # (Auto) 2.1 K/mm3 11/11/16357 Monocytes # (Auto) 0.5 K/mm3 11/11/16357 Eosinophils # (Auto) 0.3 K/mm3 11/11/16357 Basophils # (Auto) 0.2 K/mm3 11/11/16357 Large Unclassified Cells # 0.2 K/mm3 11/11/16357 Salicylates Level 2.1 MG/DL L 11/11/16357 Urine Opiates Screen NEGATIVE 11/11/16 0506 Urine Methadone Screen NEGATIVE 11/11/16 0506 Acetaminophen Level < 2.0 UG/ML L 11/11/16357 Urine Barbiturates, Qualitative NEGATIVE 11/11/16 0506 Urine Tricyclic Antidepressants NEGATIVE 11/11/16 0506 Urine Amphetamine Level NEGATIVE 11/11/16 0506 Urine Benzodiazepines Screen NEGATIVE 11/11/16 0506 Urine Cocaine Metabolite NEGATIVE 11/11/16 0506 Urine Cannabinoids NEGATIVE 11/11/16 0506 Ethyl Alcohol Level 0.110 % H 11/11/16 0358 Microbiology Microbiology 11/11/16 Blood Culture - Preliminary, Resulted No Growth after 48 hours. All Specime... 11/11/16 Blood Culture - Preliminary, Resulted No Growth after 48 hours. All Specime... Home Medications Scheduled PRN Albuterol Sulfate (Proair Hfa) 108 Mcg/Act Aer 2 PUFFS INH Q4H PRN PRN SOB/ WHEEZING Albuterol Sulfate (Albuterol Sulfate) 2.5 Mg/3 Ml Nebu 2.5 MG INH Q4H PRN PRN SHORTNESS OF BREATH Allergies Coded Allergies: Codeine (Verified Adverse Reaction, Intermediate, ABDOMINAL PAIN, 02/08/13) No Known Allergies (Verified , 08/07/06) Naina Chen Nov 13, 2016 11:59
[2016-11-13 18:00] VITALS: BP 137/64
[2016-11-13 18:15] VITALS: BP 137/64
[2016-11-13] MEDS: IBUPROFEN 400 MG TAB PO PRN (20:27)
--- NOTE | 2016-11-13 20:51 | MHHPE ---
DATE OF ADMISSION: 11/12/2016 DATE OF SERVICE: 11/13/2016 CHIEF COMPLAINT: "I was in the emergency room because I couldn't breathe and when they asked if I was depressed and feeling like hurting myself, I said yes." HISTORY OF THE PRESENT ILLNESS: The patient is a 50-year-old Turkish man who presented to the emergency department after reportedly putting a gun in his mouth in a suicide bid but stopped after he had thought about the seriousness of such an action. He instead called 911 for help and was brought to the emergency department. The patient reports that he has had a long history of depression and alcohol abuse and had been drinking heavily all week leading to his emergency room visit. He says that he felt very guilty for relapsing into alcohol use, compounded by stressors that include severe financial difficulties, inability to buy holiday presents for his children and grandchildren and relational conflicts with his girlfriend. He reports that his depression characterized by depressed mood, insomnia, occasional feeling of hopelessness and helplessness has been on and off and he previously had benefited from treatment with Lexapro. However, he has not had the medication in more than 4 years due to problems affording to pay out of pocket as he has no health insurance coverage. PAST PSYCHIATRIC HISTORY: He reports suffering from depression since age 17 when he was incarcerated. He attempted to hang himself while in snf at the time and was admitted to [facility]. Upon release, he checked himself into [place] and was hospitalized for 2 weeks and treated for depression. He reports on and off outpatient treatment, mostly in combination with alcohol related treatment, including those at [facility] and [facility] on [facility] with Dr. Abdi. SUBSTANCE ABUSE HISTORY: As noted, he reports an extensive use of alcohol involving heavy consumption of beer and liquor. He reports that he was at some point, about 30 years prior, completely abstinent, having attended alcohol program that included A.A. However, he relapsed again about 5 years prior and from that time on, he has had occasional relapses. His current is that leading to the current admission when he started drinking heavily about a week prior to his emergency room visit. He reports withdrawal symptoms that include delirium tremens. He has had at least one alcohol-related conviction, the second involving altercation with police officers while drunk. In addition to alcohol use, he also reports extensive use of marijuana. He smokes more than a pack of cigarettes daily. MEDICAL HISTORY: He reports a history of bilateral foot trauma, chronic obstructive pulmonary disease (COPD) and previous treatment for hepatitis C. No reported allergies. SURGICAL HISTORY: Includes bilateral foot surgery, hernia repair and appendectomy. SOCIAL HISTORY: He reports that he graduated high school and had 2 years of college degree in [employer]. He was but currently . He has four children, all grown up and some grandchildren. He was born at [facility]. 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 LEGAL HISTORY: First arrest was at age 17 and the second was about 10 years ago for fighting police officers. No reported family history of mental illness or suicide. REVIEW OF SYSTEMS: Please refer to medical physician assistant director of public works's assessment for details. VITAL SIGNS: Blood pressure 134/83, pulse 98, respirations 16 and temperature 97.4. MENTAL STATUS EXAMINATION: The patient is of tall height and average build. He wears unkempt hair and appears slightly disheveled. He is calm and cooperative, alert and oriented to person, time and place. He relates in a respectful conversational manner. His speech is of normal volume, rate and rhythm. His thought process is coherent and goal directed. No evidence of delusions or hallucinations and no ideas of reference noted. He describes his mood as depressed. Affect is slightly restricted. He denies active suicidal thoughts, plan or intent as well as homicidal ideation. His insight is limited and judgment currently not impaired. Impulse control is presently adequate, although historically poor in terms of his repeated indulgence in substance. DIAGNOSES: 1. Unspecified depressive disorder. 2. Alcohol use disorder. 3. Cannabis use disorder. PROBLEM LIST: 1. Depression. 2. Risk for suicide. 3. Substance abuse. PLAN: 1. Admission to inpatient service. 2. Institution of proper safety precautions. 3. Pharmacological treatment. The patient will be started on Lexapro, a medication he previously had been on and reported some beneficial effects with. He was started at 20 mg orally daily for treatment of depression. Risks and benefits explained to the patient. He demonstrates understanding and consents to trial of the medication. In addition to medication management, psychotherapeutic interventions will form a mainstay of his treatment, including group, individual and activity therapies. Plan at the time of discharge will include establishing him with a facility equipped to provide both substance abuse treatment as well as management of his depressive symptoms. Estimated length of stay: 4-5 days. MTDD
[2016-11-13] MEDS: traZODone 50 MG TAB PO PRN (23:06)
[2016-11-14 06:37] VITALS: BP 139/85
[2016-11-14] MEDS: IBUPROFEN 400 MG TAB PO PRN ×3 (06:44→19:13)
[2016-11-14] MEDS: ALBUTEROL 90 MCG/ACT 8GM HFA INHALER INH PRN ×3 (07:37→19:12)
[2016-11-14 07:58] LABS: MEAN CORPUSCULAR HEMOGLOBIN 32.6 pg (27.0-33.0); MEAN CORPUSCULAR HGB CONC 32.1 g/dl (32.0-36.5); MEAN CORPUSCULAR VOLUME 101.4 fl (80.0-96.0); RED CELL DISTRIBUTION WIDTH 14.9 % (11.5-14.5); WHITE BLOOD COUNT 10.1 K/mm3 (4.0-10.0)
[2016-11-14] MEDS: THIAMINE 100 MG TAB PO SCH ×2 (08:39→20:42)
[2016-11-14] MEDS: ACETAMINOPHEN TAB 650MG DOSE (2X325MG) PO PRN ×3 (08:39→22:54)
[2016-11-14] MEDS: MULTIVITAMINS/MINERALS THERAP 1 TAB PO SCH (08:39)
[2016-11-14] MEDS: ESCITALOPRAM OXALATE 10 MG TAB (LEXAPRO) PO SCH (08:39)
[2016-11-14] MEDS: FOLIC ACID 1 MG TAB PO SCH (08:39)
[2016-11-14] MEDS: NICOTINE 21MG/24HR 1 EA TRANSDERMAL TD SCH (08:41)
[2016-11-14] MEDS ORDERED: INFLUENZA QUADRIVALENT PF VACCINE 0.5ML SYRINGE/VIAL (90686) IM ONE (09:00)
[2016-11-14 11:19] VITALS: BP 139/85
[2016-11-14 12:00] VITALS: BP 135/74
--- NOTE | 2016-11-14 15:00 | EDDOCDS ---
Physician Documentation [facility] Name: Godwin Amado Age: 50 yrs Sex: Male : 1965 Arrival Date: 11/11/2016 Time: 03:08 Bed OBSERVATION Private MD: NO PRIMARY PHYSICIAN, . Disposition: 11/12/16 12:12 Hospitalization ordered by Arsenio Raza for Inpatient Admission. Preliminary diagnosis are Suicidal ideations, Chronic obstructive pulmonary disease with (acute) exacerbation. - Bed requested for Admit. - Status is Inpatient Admission. mk4 - Condition is Stable. - Problem is new. - Symptoms are unchanged. Historical: - Allergies: No known drug Allergies; - Home Meds: 1. Albuterol nebs 2. albuterol inhaler 3. Vicodin 5/500 10mg Oral 7 or 8 per day - PMHx: Alcoholism; Colitis; COPD; Pneumonia; - PSHx: Appendectomy; Hernia repair; right arm surgery; - Social history: Smoking status: Patient uses tobacco products, current every day smoker. Patient uses alcohol Vicodin , No barriers to communication noted, The patient speaks fluent Ukrainian, Speaks appropriately for age, Preferred Language: Ukrainian. - Family history: Not pertinent. - : The pt / caregiver states he / she is not on anticoagulants. Home medication list is obtained from the patient. - Exposure Risk Screening:: None identified. Vital Signs: 11/11 03:10 BP 138 / 76 (auto/); lf1 03:12 Pulse 86 MON; Pulse Ox 94% ; lf1 03:14 BP 138 / 76; Pulse 88; Resp 25; Temp 96.9(O); Pulse Ox 94% on R/A; Weight 90.72 kg / jmv 200 lbs (R); Height 6 ft. 2 in. (187.96 cm) (R); Pain 0/10; 03:48 BP 180 / 91 (auto/); lf1 03:50 Pulse 90 MON; Pulse Ox 95% ; lf1 03:56 BP 171 / 86 (auto/); lf1 03:57 Pulse 90 MON; Pulse Ox 94% ; lf1 04:00 BP 168 / 89 (auto/); lf1 04:01 Pulse 90 MON; Resp 24; Pulse Ox 94% ; lf1 04:15 BP 144 / 89 (auto/); lf1 04:16 Pulse 86 MON; Pulse Ox 92% ; lf1 04:30 BP 151 / 98 (auto/); lf1 04:31 Pulse 90 MON; Pulse Ox 88% ; lf1 04:32 Pulse 90 MON; Pulse Ox 88% ; lf1 04:45 BP 129 / 60 (auto/); lf1 04:46 Pulse 82 MON; Pulse Ox 92% ; lf1 05:00 BP 156 / 86 (auto/); lf1 05:01 Pulse 80 MON; Pulse Ox 90% ; lf1 05:15 BP 155 / 76 (auto/); lf1 05:15 Pulse 98 MON; Pulse Ox 94% ; lf1 05:28 Pulse 98 MON; Resp 24; Pulse Ox 90% ; lf1 09:09 BP 175 / 95; Pulse 85; Resp 20; Temp 98.5(T); Pulse Ox 93% on R/A; Pain 0/10; dsf 13:21 BP 141 / 82; Pulse 95; Resp 20; Temp 96.5(T); Pulse Ox 93% on R/A; Pain 0/10; dsf 16:43 BP 158 / 66; Pulse 100; Resp 16; Temp 96.8(T); Pulse Ox 95% on R/A; Pain 0/10; dsf 21:59 BP 172 / 85 LA Sitting (auto/reg); Pulse 84 MON; Resp 18 S; Temp 98.1(T); Pulse Ox 94% ka4 on R/A; Pain 0/10; 11/12 05:56 BP 155 / 76; Pulse 73; Resp 22; Temp 98.8(O); Pulse Ox 94% on R/A; Pain 0/10; kb5 13:48 BP 152 / 80; Pulse 88; Resp 18; Temp 98; Pulse Ox 95% on R/A; mk4 11/11 03:14 Body Mass Index 25.68 (90.72 kg, 187.96 cm) darielav MDM: 11/11 03:35 Solu-MEDROL 125 mg IVP once ordered. mm11 03:35 -Blood Culture (Adults Only), peripheral from different site, or from device/port/PICC mm11 etc. if present ordered. 03:35 Call Respiratory ordered. mm11 03:35 Accounting Machine Mechanic/Pulse Ox/q 15 min VS ordered. mm11 03:35 IV Saline Lock ordered. mm11 03:35 Oxygen at 4L/Min NC or Home dosage ordered. mm11 03:35 Rhythm Strip to chart ordered. mm11 03:35 Albuterol-Ipratropium 1 neb Nebulizer every 20 minutes x3 ordered. mm11 03:36 Consult PFS/PSA/Power Saw Mechanic ordered. mm11 03:36 Consult PFS/PSA/Power Saw Mechanic: Patient's case requires discussion with on-call mm11 Psychiatrist ordered. 03:36 PSA/PFS to call Nursing Rn Relief Charge, to enter patient data on [place] Safe Act if patient mm11 involuntarily admitted or transferred for SI or HI ordered. 03:36 Confirm accurate psychiatric medication list and times of last dosage ordered. mm11 03:36 Detain Pt Until Medically/PFS Cleared ordered. mm11 03:36 -Blood Culture Ordered. EDMS 03:36 B-Type Natiuretic Peptide Ordered. EDMS 03:36 Basic Metabolic Profile Ordered. EDMS 03:36 CBC with Diff Ordered. EDMS 03:36 -Arterial Blood Gas Ordered. EDMS 03:37 ECG WITH READING ER PHYS+CARDIAG ordered. EDMS 03:37 Call Respiratory complete. ml3 03:37 Acetaminophen Level Ordered. EDMS 03:37 Drug Eval Toxicology ED Only Ordered. EDMS 03:37 Ethyl Alcohol (ethanol) Ordered. EDMS 03:37 Liver Profile Ordered. EDMS 03:37 Salicylate Level Ordered. EDMS 03:37 Thyroid Stimulating Hormone Ordered. EDMS 03:37 Chest, 2 View (pa\E\lat) Ordered. EDMS 03:40 BLOOD CULTURES Ordered. EDMS 03:40 -Blood Culture (Adults Only), peripheral from different site, or from device/port/PICC ml3 etc. if present complete. 04:54 Financial registration complete. hs2 05:02 Basic Metabolic Profile Reviewed. mm11 05:02 CBC with Diff Reviewed. mm11 05:02 -Arterial Blood Gas Reviewed. mm11 05:02 Acetaminophen Level Reviewed. mm11 05:02 Ethyl Alcohol (ethanol) Reviewed. mm11 05:02 Salicylate Level Reviewed. mm11 05:02 B-Type Natiuretic Peptide Reviewed. mm11 05:02 Liver Profile Reviewed. mm11 05:02 Thyroid Stimulating Hormone Reviewed. mm11 05:47 levofloxacin 750 mg PO once ordered. mm11 06:22 [facility] Payment Agreement was scanned into Logly and attached to record. hs2 06:30 REGULAR DIET PLASTIC STEPHENS+DIET ordered. EDMS 07:58 Drug Eval Toxicology ED Only Reviewed. mm11 08:22 ED course: pt signed out to me. cta when listening to lungs. pt with no complaints. ml pending psych disposition. pt with no complaints. mlg. 08:35 Ventolin Inhaler 2 puffs Inhalation every 4 hours ordered. ml 09:05 Consult PFS/PSA/Power Saw Mechanic complete. rb 10:09 Consult PFS/PSA/Power Saw Mechanic: Patient's case requires discussion with on-call rb Psychiatrist complete. 10:09 PSA/PFS to call Nursing Rn Relief Charge, to enter patient data [place] Safe [place] if patient rb involuntarily admitted or transferred for SI or HI complete. 11:18 REGULAR DIET PLASTIC STEPHENS+DIET ordered. EDMS 11:35 predniSONE 60 mg PO once; administer with food or milk ordered. ml 13:16 Ventolin Inhaler 2 puffs Inhalation once ordered. dsf 16:41 REGULAR DIET PLASTIC STEPHENS+DIET ordered. EDMS 16:58 Ventolin Inhaler 2 puffs Inhalation once ordered. dsf 19:24 Awaiting: The patient is awaiting psychiatric admission or transfer. All labs and mm11 investigations have been reviewed. The vital signs have been reviewed. The patient remains medically cleared for disposition. 21:50 Ventolin Inhaler 2 puffs Inhalation once ordered. ka4 22:07 diphenhydrAMINE 25 mg PO once ordered. mm11 11/12 02:01 Ventolin Inhaler 2 puffs Inhalation once ordered. ka4 03:53 diphenhydrAMINE 25 mg PO once ordered. mm11 04:08 -Blood Culture Reviewed. mm11 04:08 BLOOD CULTURES Reviewed. mm11 04:08 Chest, 2 View (pa\E\lat) Reviewed. mm11 04:08 EKG-ADULT Reviewed. mm11 04:33 REGULAR DIET ROOM SERVICE ED+DIET ordered. EDMS 05:56 Ventolin Inhaler 2 puffs Inhalation once ordered. ka4 07:04 levofloxacin 750 mg PO once ordered. mm11 11:05 REGULAR DIET PLASTIC STEPHENS+DIET ordered. EDMS 11:07 Nicotine Patch 21 mg/24 hr 1 applic Transdermal once ordered. mk4 11:48 REGULAR DIET ROOM SERVICE ED+DIET ordered. EDMS 12:10 Admit to [facility]: ordered. EDMS 12:11 [facility] Legal paperwork was scanned into Logly and attached to record. ml4 13:02 T-Sheet-- Draft Copy was scanned into Logly and attached to record. gb 13:10 Ventolin Inhaler 2 puffs Inhalation once ordered. mk4 11/13 13:51 ECG/EKG was scanned into Log[employer] and attached to record. gb Administered Medications: 11/11 03:57 Drug: Albuterol-Ipratropium 1 neb [ipratropium-albuterol 0.5 mg-3 mg(2.5 mg base)/3 mL lf2 nebulization soln (1 neb)] Route: Nebulizer; 04:00 Drug: Albuterol-Ipratropium 1 neb [ipratropium-albuterol 0.5 mg-3 mg(2.5 mg base)/3 mL lf2 nebulization soln (1 neb)] Route: Nebulizer; 04:10 Drug: Albuterol-Ipratropium 1 neb [ipratropium-albuterol 0.5 mg-3 mg(2.5 mg base)/3 mL lf2 nebulization soln (1 neb)] Route: Nebulizer; 04:11 Drug: Solu-MEDROL 125 mg [Solu-Medrol 500 mg intravenous solution (125 mg)] Route: IVP; lf1 Site: left forearm; 06:28 Drug: levofloxacin 750 mg [levofloxacin 250 mg tablet (3 tabs)] {Note: 1-500mg tab and cp1 1-250mg tab given.} Route: PO; 09:08 Drug: Ventolin 2 puffs [Ventolin HFA 90 mcg/actuation aerosol inhaler (2 puffs)] Route: dsf Inhalation; 13:16 Drug: Ventolin 2 puffs [Ventolin HFA 90 mcg/actuation aerosol inhaler (2 puffs)] Route: dsf Inhalation; 17:00 Drug: Ventolin 2 puffs [Ventolin HFA 90 mcg/actuation aerosol inhaler (2 puffs)] Route: dsf Inhalation; 18:36 Drug: predniSONE 60 mg [prednisone 20 mg tablet (3 tabs)] Route: PO; dsf 21:50 Drug: Ventolin 2 puffs [Ventolin HFA 90 mcg/actuation aerosol inhaler (2 puffs)] Route: ka4 Inhalation; 22:19 Drug: diphenhydrAMINE 25 mg [diphenhydramine 25 mg capsule (1 caps)] Route: PO; 4 11/12 01:57 Follow up: Response: No Adverse Reaction [facility] 02:11 Drug: Ventolin 2 puffs [Ventolin HFA 90 mcg/actuation aerosol inhaler (2 puffs)] Route: ka4 Inhalation; 04:00 Drug: diphenhydrAMINE 25 mg [diphenhydramine 25 mg capsule (1 caps)] Route: PO; [facility] 04:32 Follow up: Response: No Adverse Reaction; No significant change. [facility] 05:56 Drug: Ventolin 2 puffs [Ventolin HFA 90 mcg/actuation aerosol inhaler (2 puffs)] Route: ka4 Inhalation; 07:59 Drug: levofloxacin 750 mg [levofloxacin 250 mg tablet (3 tabs)] Route: PO; [facility] 11:18 Drug: Nicotine 1 applic [nicotine 21 mg/24 hr daily transdermal patch (1 patches)] 4 Route: Transdermal; Site: left upper arm; 13:10 Drug: Ventolin 2 puffs [Ventolin HFA 90 mcg/actuation aerosol inhaler (2 puffs)] Route: 4 Inhalation; Signatures: Dispatcher [employer] EDMN Matthew Arita MD MD ml Kori Lutz, PSA PSA rb Shilpa Monsalve, Reg Reg gb Lenora KamalaRachaelJoan, Product Marketing Coordinator Unit ml3 Beatriz Duff, PSA PSA ml4 Beth Molina,RN RN lf1 Lupillo Guo DO DO mm11 Luis Antonio Middleton MD MD br1 Trinity NarayanRN RN dsf Livia Pitts RN RN mk4 Erin Ulloa LPN LPN ka4 Viviana South, Reg Reg hs2 Alphonso Caballero RNk Pamella Henson LPN cp1 Beth Manning RT lf2 The chart was reviewed and I authenticate all verbal orders and agree with the evaluation and treatment provided.Attachments: 11/11 06:22 [facility] Payment Agreement hs2 13:02 T-Sheet-- Draft Copy 11/13 13:51 ECG/EKG Chart Complete MTDD
--- NOTE | 2016-11-14 15:00 | EDDOCDS ---
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 Visual Assessment: Sleeping. tmm1 03:00 Psych Safety Check: Location: Psych Room. Visual Assessment: Cooperative. kb5 03:13 Patient visited by Josr Segovia PCA. kb5 03:15 Psych Safety Check: Location: Psych Room. Visual Assessment: Cooperative. kb5 03:30 Psych Safety Check: Location: Psych Room. Visual Assessment: Cooperative. kb5 03:34 Patient visited by Josr Segovia MAIL PROCESSING MACHINE OPERATOR. kb5 03:36 Patient visited by Bre Song RN. af2 03:45 Psych Safety Check: Location: Psych Room. Visual Assessment: Cooperative. kb5 03:46 Patient visited by Josephine Segoviaer MAIL PROCESSING MACHINE OPERATOR. kb5 04:00 Psych Safety Check: Location: Psych Room. Visual Assessment: Cooperative. kb5 04:03 Patient visited by Josr Segovia MAIL PROCESSING MACHINE OPERATOR. kb5 04:15 Patient visited by Lesli Segoviaopher MAIL PROCESSING MACHINE OPERATOR. kb5 04:15 Psych Safety Check: Location: Psych Room. Visual Assessment: Cooperative. kb5 04:27 Patient visited by Erin Ulloa LPN. ka4 04:29 Patient visited by Erin Ulloa LPN. ka4 04:30 Patient visited by Josr Segovia MAIL PROCESSING MACHINE OPERATOR. kb5 04:30 Psych Safety Check: Location: Psych Room. Visual Assessment: Cooperative. kb5 04:45 Psych Safety Check: Location: Psych Room. Visual Assessment: Cooperative. kb5 04:48 Patient visited by Josr Segovia MAIL PROCESSING MACHINE OPERATOR. kb5 05:00 Psych Safety Check: Location: Psych Room. Visual Assessment: Cooperative. kb5 05:03 Patient visited by Josr Segovia MAIL PROCESSING MACHINE OPERATOR. kb5 05:15 Patient visited by Josr Segovia MAIL PROCESSING MACHINE OPERATOR. kb5 05:15 Psych Safety Check: Location: Psych Room. Visual Assessment: Cooperative. kb5 05:27 Patient visited by Erin Ulloa LPN. ka4 05:30 Patient visited by Josr Segovia MAIL PROCESSING MACHINE OPERATOR. kb5 05:30 Psych Safety Check: Location: Psych Room. Visual Assessment: Cooperative. kb5 05:45 Patient visited by Ber Song RN. af2 05:45 Psych Safety Check: Location: Psych Room. Visual Assessment: Cooperative. kb5 05:46 Patient visited by Josr Segovia MAIL PROCESSING MACHINE OPERATOR. kb5 06:00 Psych Safety Check: Location: Psych Room. Visual Assessment: Cooperative. kb5 06:08 Patient visited by Josr Segovia MAIL PROCESSING MACHINE OPERATOR. kb5 06:15 Psych Safety Check: Location: Psych Room. Visual Assessment: Cooperative. kb5 06:16 Patient visited by Josr Segovia PCA. kb5 06:19 Patient visited by Erin Ulloa LPN. ka4 06:30 Psych Safety Check: Location: Psych Room. Visual Assessment: Cooperative. kb5 06:31 Patient visited by Josr Segovia MAIL PROCESSING MACHINE OPERATOR. kb5 06:45 Psych Safety Check: Location: Psych Room. Visual Assessment: Cooperative. kb5 06:46 Patient visited by Josr Segovia MAIL PROCESSING MACHINE OPERATOR. kb5 07:01 Patient visited by Josr Segovia PCA. kb5 07:16 Patient visited by Jimy Roblero Security Aide. pjf 07:23 Primary Nurse role handed off by Erin Ulloa LPN deg 07:32 Patient visited by Jimy Roblero Security Aide. pjf 07:45 Psych Safety Check: Location: Psych Room. Visual Assessment: Cooperative. pjf 08:00 Psych Safety Check: Location: Psych Room. Visual Assessment: Cooperative. pjf 08:02 Patient visited by Alphonso Caballero RN. jmk 08:18 Patient visited by Jimy Roblero Security Aide. pjf 08:34 Patient visited by Surinder Dunbar. dem1 08:50 Patient visited by Surinder Dunbar. dem1 09:01 Patient visited by Jimy Roblero, Security Aide. pjf 09:15 Patient visited by Jimy Roblero, Security Aide. pjf 09:45 Psych Safety Check: Location: Psych Room. Visual Assessment: Cooperative. pjf 09:53 Patient visited by Jimy Roblero, Security Aide. pjf 10:16 Patient visited by Jimy Roblero, Security Aide. pjf 10:38 Patient visited by Jimy Roblero, Security Aide. pjf 10:53 Patient visited by Jimy Roblero, Security Aide. pjf 11:10 Patient visited by Jimy Roblero, Security Aide. pjf 11:56 Patient visited by Jimy Roblero, Security Aide. pjf 12:10 Attending Physician role handed off by Siobhan Guo DO br1 12:10 Luis Antonio Middleton MD is Attending Physician. br1 12:11 E Legal paperwork was scanned into emere and attached to record. ml4 12:12 Arsenio Raza is Hospitalizing Provider. br1 12:30 Patient visited by Vinita Oneil PCA. jlf 12:49 Patient visited by Jimy Roblero Security Aide. pjf 13:02 T-Sheet-- Draft Copy was scanned into emere and attached to record. gb 13:13 Patient visited by Jimy Roblero Security Aide. pjf 13:28 Patient visited by Jimy Roblero Security Aide. pjf 13:45 Patient visited by Jimy Roblero Security Aide. pjf 13:48 The patient / caregiver is instructed regarding the plan of care and ED course. mk4 13:48 No IV's were initiated during this patient's visit. No procedures done that require mk4 assistance. 11/13 13:51 ECG/EKG was scanned into emere and attached to record. gb Administered Medications: 11/11 03:57 Drug: Albuterol-Ipratropium 1 neb [ipratropium-albuterol 0.5 mg-3 mg(2.5 mg base)/3 mL lf2 nebulization soln (1 neb)] Route: Nebulizer; 04:00 Drug: Albuterol-Ipratropium 1 neb [ipratropium-albuterol 0.5 mg-3 mg(2.5 mg base)/3 mL lf2 nebulization soln (1 neb)] Route: Nebulizer; 04:10 Drug: Albuterol-Ipratropium 1 neb [ipratropium-albuterol 0.5 mg-3 mg(2.5 mg base)/3 mL lf2 nebulization soln (1 neb)] Route: Nebulizer; 04:11 Drug: Solu-MEDROL 125 mg [Solu-Medrol 500 mg intravenous solution (125 mg)] Route: IVP; lf1 Site: left forearm; 06:28 Drug: levofloxacin 750 mg [levofloxacin 250 mg tablet (3 tabs)] {Note: 1-500mg tab and cp1 1-250mg tab given.} Route: PO; 09:08 Drug: Ventolin 2 puffs [Ventolin HFA 90 mcg/actuation aerosol inhaler (2 puffs)] Route: dsf Inhalation; 13:16 Drug: Ventolin 2 puffs [Ventolin HFA 90 mcg/actuation aerosol inhaler (2 puffs)] Route: dsf Inhalation; 17:00 Drug: Ventolin 2 puffs [Ventolin HFA 90 mcg/actuation aerosol inhaler (2 puffs)] Route: dsf Inhalation; 18:36 Drug: predniSONE 60 mg [prednisone 20 mg tablet (3 tabs)] Route: PO; dsf 21:50 Drug: Ventolin 2 puffs [Ventolin HFA 90 mcg/actuation aerosol inhaler (2 puffs)] Route: ka4 Inhalation; 22:19 Drug: diphenhydrAMINE 25 mg [diphenhydramine 25 mg capsule (1 caps)] Route: PO; ka4 11/12 01:57 Follow up: Response: No Adverse Reaction ka4 02:11 Drug: Ventolin 2 puffs [Ventolin HFA 90 mcg/actuation aerosol inhaler (2 puffs)] Route: ka4 Inhalation; 04:00 Drug: diphenhydrAMINE 25 mg [diphenhydramine 25 mg capsule (1 caps)] Route: PO; ka4 04:32 Follow up: Response: No Adverse Reaction; No significant change. ka4 05:56 Drug: Ventolin 2 puffs [Ventolin HFA 90 mcg/actuation aerosol inhaler (2 puffs)] Route: ka4 Inhalation; 07:59 Drug: levofloxacin 750 mg [levofloxacin 250 mg tablet (3 tabs)] Route: PO; jmk 11:18 Drug: Nicotine 1 applic [nicotine 21 mg/24 hr daily transdermal patch (1 patches)] 4 Route: Transdermal; Site: left upper arm; 13:10 Drug: Ventolin 2 puffs [Ventolin HFA 90 mcg/actuation aerosol inhaler (2 puffs)] Route: mk4 Inhalation; Attachments: 11/12 12:11 MHE Legal paperwork ml4 Intake: 11/11 14:42 PO: 360.00ml (Milk); Total: 360.00ml. dsf 14:42 PO: 240.00ml (Juice); Total: 600.00ml. dsf RT: 03:57 Initial Med Neb Given as ordered Patient was instructed and evaluated on procedure lf2 Patient tolerated procedure well without adverse effect. O2 via nasal cannula \\T\\ 2L/min. Respiratory: Airway is patent Respiratory effort is even, unlabored, relaxed, Respiratory pattern is regular symmetrical, trachea is midline 04:13 Subsequent Med Neb Given as ordered Patient tolerated procedure well without adverse lf2 effect. Respiratory: Breath sounds are diminished bilaterally. Breath sounds with wheezes bilaterally. 04:14 ABG's drawn from right radial artery allens test done and positive pressure held for 5 lf2 minutes no bleeding noted pressure bandage applied specimen sent pt. tolerated well. Subsequent Med Neb Given as ordered Patient tolerated procedure well without adverse effect. O2 via nasal cannula \\T\\ 2L/min. Respiratory: Breath sounds with wheezes bilaterally. at expiration. Order Results: Lab Order: -Blood Culture; SPEC'M 11/11/16 03:58 Test: BLOOD CULTURE; Value: No growth after 24 hours . All specimens observed; Status: F Test: BLOOD CULTURE; Value: for 7 days. Results final at that time.; Status: F Lab Order: B-Type Natiuretic Peptide; SPEC'M 11/11/16 03:58 Test: BRAIN NATRIURETIC PEPTIDE; Value: 16.7; Range: <100; Units: PG/ML; Status: F Lab Order: Basic Metabolic Profile; SPEC'M 11/11/16 03:58 Test: GLUCOSE, FASTING; Value: 97; Range: 70-105; Units: MG/DL; Status: F Test: BLOOD UREA NITROGEN; Value: 11; Range: 7-18; Units: MG/DL; Status: F Test: CREATININE FOR GFR; Value: 0.68; Range: 0.70-1.30; Abnormal: Below low normal; Units: MG/DL; Status: F Test: GLOMERULAR FILTRATION RATE; Value: > 60.0; Range: >56; Status: F Test: SODIUM LEVEL; Value: 145; Range: 136-145; Units: MEQ/L; Status: F Test: POTASSIUM SERUM; Value: 4.0; Range: 3.5-5.1; Units: MEQ/L; Status: F Test: CHLORIDE LEVEL; Value: 107; Range: 98-107; Units: MEQ/L; Status: F Test: CARBON DIOXIDE LEVEL; Value: 30; Range: 21-32; Units: MEQ/L; Status: F Test: ANION GAP; Value: 8; Range: 8-16; Units: MEQ/L; Status: F Test: CALCIUM LEVEL; Value: 8.9; Range: 8.5-10.1; Units: MG/DL; Status: F Test Note: ; Units are mL/min/1.73 m2 Chronic Kidney Disease Staging per NKF: Stage I & II GFR >=60 Normal to Mildly Decreased Stage III GFR 30-59 Moderately Decreased Stage IV GFR 15-29 Severely Decreased Stage V GFR <15 Very Little GFR Left ESRD GFR <15 on [facility] Lab Order: CBC with Diff; SPEC'M 11/11/16 03:58 Test: WHITE BLOOD COUNT; Value: 10.8; Range: 4.0-10.0; Abnormal: Above high normal; Units: K/mm3; Status: F Test: RED BLOOD COUNT; Value: 4.51; Range: 4.30-6.10; Units: M/mm3; Status: F Test: HEMOGLOBIN; Value: 14.9; Range: 14.0-18.0; Units: g/dl; Status: F Test: HEMATOCRIT; Value: 45.8; Range: 42.0-52.0; Units: %; Status: F Test: MEAN CORPUSCULAR VOLUME; Value: 101.5; Range: 80.0-96.0; Abnormal: Above high normal; Units: fl; Status: F Test: MEAN CORPUSCULAR HEMOGLOBIN; Value: 33.0; Range: 27.0-33.0; Units: pg; Status: F Test: MEAN CORPUSCULAR HGB CONC; Value: 32.5; Range: 32.0-36.5; Units: g/dl; Status: F Test: RED CELL DISTRIBUTION WIDTH; Value: 14.5; Range: 11.5-14.5; Units: %; Status: F Test: PLATELET COUNT, AUTOMATED; Value: 286; Range: 150-450; Units: k/mm3; Status: F Test: NEUTROPHILS %; Value: 72.1; Range: 36.0-66.0; Abnormal: Above high normal; Units: %; Status: F Test: LYMPH %; Value: 17.1; Range: 24.0-44.0; Abnormal: Below low normal; Units: %; Status: F Test: MONO %; Value: 4.4; Range: 0.0-5.0; Units: %; Status: F Test: EOS %; Value: 2.9; Range: 0.0-3.0; Units: %; Status: F Test: BASO %; Value: 1.5; Range: 0.0-1.0; Abnormal: Above high normal; Units: %; Status: F Test: LARGE UNSTAINED CELL %; Value: 2.0; Range: 0.0-4.0; Units: %; Status: F Test: NEUTROPHILS #; Value: 7.8; Range: 1.8-7.7; Abnormal: Above high normal; Units: K/mm3; Status: F Test: LYMPH #; Value: 2.1; Range: 1.5-4.5; Units: K/mm3; Status: F Test: MONO #; Value: 0.5; Range: 0.0-0.8; Units: K/mm3; Status: F Test: EOS #; Value: 0.3; Range: 0.0-0.50; Units: K/mm3; Status: F Test: BASO #; Value: 0.2; Range: 0.0-0.2; Units: K/mm3; Status: F Test: LARGE UNSTAINED CELL #; Value: 0.2; Range: 0.0-0.4; Units: K/mm3; Status: F Lab Order: -Arterial Blood Gas; SPEC'M 11/11/16 03:57 Test: ABG pH (ARTERIAL); Value: 7.398; Range: 7.350-7.450; Units: UNITS; Status: F Test: ABG PARTIAL PRESSURE CO2; Value: 45.1; Range: 35.0-45.0; Abnormal: Above high normal; Units: mmHg; Status: F Test: ABG PARTIAL PRESSURE O2; Value: 74.0; Range: 75.0-100.0; Abnormal: Below low normal; Units: mmHg; Status: F Test: ABG TOTAL CO2; Value: 28.6; Range: 22.0-29.0; Units: MEQ/L; Status: F Test: ABG HCO3; Value: 27.2; Range: 22.0-26.0; Abnormal: Above high normal; Units: MEQ/L; Status: F Test: ABG BASE EXCESS; Value: 1.8; Range: -2.0-2.0; Status: F Test: ABG STANDARD HCO3; Value: 26.0; Range: 22.0-26.0; Units: MEQ/L; Status: F Test: ABG O2 SATURATION; Value: 94.9; Range: 95.0-99.0; Abnormal: Below low normal; Units: %; Status: F Test: ABG DEVICE; Value: NASAL COLT; Status: F Lab Order: Acetaminophen Level; SPEC'M 11/11/16 03:58 Test: ACETAMINOPHEN LEVEL; Value: < 2.0; Range: 10.0-30.0; Abnormal: Below low normal; Units: UG/ML; Status: F Lab Order: Drug Eval Toxicology ED Only; SPEC'11/11/16 05:06 Test: AMPHETAMINES LEVEL URINE; Value: NEGATIVE; Range: NEGATIVE; Status: F Test: BARBITURATES URINE; Value: NEGATIVE; Range: NEGATIVE; Status: F Test: BENZODIAZEPINES URINE; Value: NEGATIVE; Range: NEGATIVE; Status: F Test: CANNABINOIDS URINE; Value: NEGATIVE; Range: NEGATIVE; Status: F Test: COCAINE METABOLITE URINE; Value: NEGATIVE; Range: NEGATIVE; Status: F Test: METHADONE URINE; Value: NEGATIVE; Range: NEGATIVE; Status: F Test: OPIATES URINE; Value: NEGATIVE; Range: NEGATIVE; Status: F Test: TRICYCLIC ANTIDEPRESS URINE; Value: NEGATIVE; Range: NEGATIVE; Status: F Test Note: ; ALL PRESUMPTIVE POSITIVE FINDINGS ARE UNCONFIRMED NORMAL VALUES THRESHOLD IN NG/ML AMPHETAMINES 1000 METHAMPHETAMINES 1000 BARBITURATES 300 BENZODIAZEPINES 300 CANNABINOIDS (THC) 50 COCAINE METABOLITE 300 METHADONE 300 OPIATES 300 PHENCYCLIDINE 25 TRICYCLIC ANTIDEPRESSANTS 1000 RESULTS ARE FOR MEDICAL PURPOSES ONLY. ALL URINE SPECIMENS WILL BE SAVED FOR 3 DAYS. IF CONFIRMATION OF A PRESUMPTIVE POSTIVE SCREEN RESULT IS DESIRED, CALL CHEMISTRY ([phone]) AND REQUEST URINE TO BE SENT TO REFERENCE LAB. FOR A LIST OF CLOSELY RELATED COMPOUNDS PLEASE CALL THE LAB. Lab Order: Ethyl Alcohol (ethanol); SPEC'M 11/11/16 03:58 Test: ETHYL ALCOHOL (ETHANOL); Value: 0.110; Range: 0.000-0.010; Abnormal: Above high normal; Units: %; Status: F Lab Order: Liver Profile; SPEC'11/11/16 03:58 Test: AST/SGOT; Value: 19; Range: 15-37; Units: U/L; Status: F Test: ALT/SGPT; Value: 25; Range: 12-78; Units: U/L; Status: F Test: ALKALINE PHOSPHATASE; Value: 86; Range: 45-117; Units: U/L; Status: F Test: BILIRUBIN,TOTAL; Value: 0.5; Range: 0.2-1.0; Units: MG/DL; Status: F Test: BILIRUBIN,DIRECT; Value: 0.1; Range: 0.0-0.2; Units: MG/DL; Status: F Test: TOTAL PROTEIN; Value: 7.0; Range: 6.4-8.2; Units: GM/DL; Status: F Test: ALBUMIN; Value: 3.8; Range: 3.2-5.2; Units: GM/DL; Status: F Test: ALBUMIN/GLOBULIN RATIO; Value: 1.19; Range: 1.00-1.93; Status: F Lab Order: Salicylate Level; SPEC'M 11/11/16 03:58 Test: SALICYLATE LEVEL; Value: 2.1; Range: 5.0-30.0; Abnormal: Below low normal; Units: MG/DL; Status: F Lab Order: Thyroid Stimulating Hormone; SPEC'M 11/11/16 03:58 Test: THYROID STIMULATING HORMONE; Value: 1.190; Range: 0.358-3.740; Units: uIU/ML; Status: F Lab Order: BLOOD CULTURES; SPEC'M 11/11/16 03:58 Test: BLOOD CULTURE; Value: No growth after 24 hours . All specimens observed; Status: F Test: BLOOD CULTURE; Value: for 7 days. Results final at that time.; Status: F Radiology Order: Chest, 2 View (pa\\E\\lat) Test: Chest, 2 View (pa\\E\\lat) REASON FOR EXAMINATION: Cough; Chest x-ray: Two views.; ; History: Cough.; ; Comparison chest x-ray February 20, 2016.; ; Findings: The lungs are hyperinflated consistent with some degree of COPD as; before. Pleural angles are sharp. No infiltrate is seen. Oxygen delivery; tubing is noted. Heart size is normal. Pulmonary vasculature is not increased.; ; Impression:; ; Hyperinflation consistent with COPD. No acute disease.; ; ; Signed by; Ousmane Knott MD 11/11/2016 10:23 A; Radiology Order: EKG-ADULT Test: EKG-ADULT REASON FOR EXAMINATION: Shortness of Breath; Stationary ECG Study; [facility] - ED; ; Test Date: 2016-11-11; Pat Name: FANG AMADO Department:; Room: -; Gender: M Tools [employer] Attendant: latricia; : 1965 Requested By: SIOBHAN Dexter; Order Number: [id number] Reading MD: Kane Ariza; Measurements; Intervals [place]; Rate: 103 P: 76; MA: 139 QRS: 66; QRSD: 87 T: 64; QT: 332; QTc: 435; Interpretive Statements; SINUS TACHYCARDIA; LAE; INC. RBBB; ; ; Electronically Signed On 11-11-2016 9:27:27 EST by Kane Ariza; Outcome: 11/12 12:12 Decision to Hospitalize by Provider. br1 13:47 Discharge Assessment: Patient awake, alert and oriented x 3. No cognitive and/or mk4 functional deficits noted. Patient verbalized understanding of disposition instructions. Patient awake and alert. patient administered narcotics - no. The following High Risk Discharge criteria are identified: None. Admitted to Psych accompanied by tech, via wheelchair, with chart. Condition: stable. No special radiology studies were completed. Property left with pt per riky PORTER. 13:59 Patient left the ED. mk4 Signatures: Dispatcher [employer] EDMS [facility] CenterMatthew Pool MD MD ml Murray, Denise, Band Booker Unit deg Alphonso Caballero,RN RN darielak Kori Lutz, PSA PSA rb Barozzie, Shilpa, Reg Reg gb Annika, Jimy, Security Aide Johnnie Astudillo Mary-Elizabeth, Band Booker Unit ml3 Beatriz Duff, PSA PSA ml4 Josr Segovia, MAIL PROCESSING MACHINE OPERATOR MAIL PROCESSING MACHINE OPERATOR kb5 Beth Molina RN RN Siobhan Wynne, DO mm11 Luis Antonio Middleton MD MD br1 Pamelal Henson,CITRUS PICKER CITRUS PICKER cp1 Christina Sparrow, MAIL PROCESSING MACHINE OPERATOR MAIL PROCESSING MACHINE OPERATOR Trinity Gar,RN RN dsf Alfa,Mariam,RN RN pml Manjinder, Cameliamonieaustyn dem1 Christel, Eduar dpm Shandra, Chiqui, MAIL PROCESSING MACHINE OPERATOR MAIL PROCESSING MACHINE OPERATOR tmm1 Livia Pitts, RN RN mk4 Thad, [place], MAIL PROCESSING MACHINE OPERATOR MAIL PROCESSING MACHINE OPERATOR jlf Artemio,Erin,CITRUS PICKER CITRUS PICKER ka4 Sahra Dickerson,RN RN [facility] Nohemi,Bre,RN RN af2 Beth Manning,RT RT lf2 Viviana South, Reg Reg hs2 Bradford, Joselito, MAIL PROCESSING MACHINE OPERATOR MAIL PROCESSING MACHINE OPERATOR jmv Corrections: (The following items were deleted from the chart) 11/11 09:04 08:32 Mental Health history: rb rb 14:20 14:19 General: Appears to be sleeping. dsf dsf 14:20 14:19 Respiratory: Airway is patent Respiratory effort is even, unlabored, Respiratory dsf pattern is regular, symmetrical, dsf 14:20 14:19 Derm: Skin is pink, warm & dry. dsf dsf 11/12 12:09 09:10 Respiratory: Airway is patent Respiratory effort is even, unlabored, harsh non mk4 productive cough, requesting nitro patch mk4 Chart Complete MTDD
--- NOTE | 2016-11-14 15:00 | EDDOCDS ---
Physician Documentation [facility] Name: Godwin Amado Age: 50 yrs Sex: Male : 1965 Arrival Date: 11/11/2016 Time: 03:08 Bed OBSERVATION Private MD: NO PRIMARY PHYSICIAN, . Disposition: 11/12/16 12:12 Hospitalization ordered by Arsenio Raza for Inpatient Admission. Preliminary diagnosis are Suicidal ideations, Chronic obstructive pulmonary disease with (acute) exacerbation. - Bed requested for Admit. - Status is Inpatient Admission. mk4 - Condition is Stable. - Problem is new. - Symptoms are unchanged. Historical: - Allergies: No known drug Allergies; - Home Meds: 1. Albuterol nebs 2. albuterol inhaler 3. Vicodin 5/500 10mg Oral 7 or 8 per day - PMHx: Alcoholism; Colitis; COPD; Pneumonia; - PSHx: Appendectomy; Hernia repair; right arm surgery; - Social history: Smoking status: Patient uses tobacco products, current every day smoker. Patient uses alcohol Vicodin , No barriers to communication noted, The patient speaks fluent Ukrainian, Speaks appropriately for age, Preferred Language: Ukrainian. - Family history: Not pertinent. - : The pt / caregiver states he / she is not on anticoagulants. Home medication list is obtained from the patient. - Exposure Risk Screening:: None identified. Vital Signs: 11/11 03:10 BP 138 / 76 (auto/); lf1 03:12 Pulse 86 MON; Pulse Ox 94% ; lf1 03:14 BP 138 / 76; Pulse 88; Resp 25; Temp 96.9(O); Pulse Ox 94% on R/A; Weight 90.72 kg / jmv 200 lbs (R); Height 6 ft. 2 in. (187.96 cm) (R); Pain 0/10; 03:48 BP 180 / 91 (auto/); lf1 03:50 Pulse 90 MON; Pulse Ox 95% ; lf1 03:56 BP 171 / 86 (auto/); lf1 03:57 Pulse 90 MON; Pulse Ox 94% ; lf1 04:00 BP 168 / 89 (auto/); lf1 04:01 Pulse 90 MON; Resp 24; Pulse Ox 94% ; lf1 04:15 BP 144 / 89 (auto/); lf1 04:16 Pulse 86 MON; Pulse Ox 92% ; lf1 04:30 BP 151 / 98 (auto/); lf1 04:31 Pulse 90 MON; Pulse Ox 88% ; lf1 04:32 Pulse 90 MON; Pulse Ox 88% ; lf1 04:45 BP 129 / 60 (auto/); lf1 04:46 Pulse 82 MON; Pulse Ox 92% ; lf1 05:00 BP 156 / 86 (auto/); lf1 05:01 Pulse 80 MON; Pulse Ox 90% ; lf1 05:15 BP 155 / 76 (auto/); lf1 05:15 Pulse 98 MON; Pulse Ox 94% ; lf1 05:28 Pulse 98 MON; Resp 24; Pulse Ox 90% ; lf1 09:09 BP 175 / 95; Pulse 85; Resp 20; Temp 98.5(T); Pulse Ox 93% on R/A; Pain 0/10; dsf 13:21 BP 141 / 82; Pulse 95; Resp 20; Temp 96.5(T); Pulse Ox 93% on R/A; Pain 0/10; dsf 16:43 BP 158 / 66; Pulse 100; Resp 16; Temp 96.8(T); Pulse Ox 95% on R/A; Pain 0/10; dsf 21:59 BP 172 / 85 LA Sitting (auto/reg); Pulse 84 MON; Resp 18 S; Temp 98.1(T); Pulse Ox 94% ka4 on R/A; Pain 0/10; 11/12 05:56 BP 155 / 76; Pulse 73; Resp 22; Temp 98.8(O); Pulse Ox 94% on R/A; Pain 0/10; kb5 13:48 BP 152 / 80; Pulse 88; Resp 18; Temp 98; Pulse Ox 95% on R/A; mk4 11/11 03:14 Body Mass Index 25.68 (90.72 kg, 187.96 cm) darielav MDM: 11/11 03:35 Solu-MEDROL 125 mg IVP once ordered. mm11 03:35 -Blood Culture (Adults Only), peripheral from different site, or from device/port/PICC mm11 etc. if present ordered. 03:35 Call Respiratory ordered. mm11 03:35 Library Circulation Technician/Pulse Ox/q 15 min VS ordered. mm11 03:35 IV Saline Lock ordered. mm11 03:35 Oxygen at 4L/Min NC or Home dosage ordered. mm11 03:35 Rhythm Strip to chart ordered. mm11 03:35 Albuterol-Ipratropium 1 neb Nebulizer every 20 minutes x3 ordered. mm11 03:36 Consult PFS/PSA/Billposter ordered. mm11 03:36 Consult PFS/PSA/Billposter: Patient's case requires discussion with on-call mm11 Psychiatrist ordered. 03:36 PSA/PFS to call Nursing Die Attacher, to enter patient data on [place] Safe Act if patient mm11 involuntarily admitted or transferred for SI or HI ordered. 03:36 Confirm accurate psychiatric medication list and times of last dosage ordered. mm11 03:36 Detain Pt Until Medically/PFS Cleared ordered. mm11 03:36 -Blood Culture Ordered. EDMS 03:36 B-Type Natiuretic Peptide Ordered. EDMS 03:36 Basic Metabolic Profile Ordered. EDMS 03:36 CBC with Diff Ordered. EDMS 03:36 -Arterial Blood Gas Ordered. EDMS 03:37 ECG WITH READING ER PHYS+CARDIAG ordered. EDMS 03:37 Call Respiratory complete. ml3 03:37 Acetaminophen Level Ordered. EDMS 03:37 Drug Eval Toxicology ED Only Ordered. EDMS 03:37 Ethyl Alcohol (ethanol) Ordered. EDMS 03:37 Liver Profile Ordered. EDMS 03:37 Salicylate Level Ordered. EDMS 03:37 Thyroid Stimulating Hormone Ordered. EDMS 03:37 Chest, 2 View (pa\E\lat) Ordered. EDMS 03:40 BLOOD CULTURES Ordered. EDMS 03:40 -Blood Culture (Adults Only), peripheral from different site, or from device/port/PICC ml3 etc. if present complete. 04:54 Financial registration complete. hs2 05:02 Basic Metabolic Profile Reviewed. mm11 05:02 CBC with Diff Reviewed. mm11 05:02 -Arterial Blood Gas Reviewed. mm11 05:02 Acetaminophen Level Reviewed. mm11 05:02 Ethyl Alcohol (ethanol) Reviewed. mm11 05:02 Salicylate Level Reviewed. mm11 05:02 B-Type Natiuretic Peptide Reviewed. mm11 05:02 Liver Profile Reviewed. mm11 05:02 Thyroid Stimulating Hormone Reviewed. mm11 05:47 levofloxacin 750 mg PO once ordered. mm11 06:22 [facility] Payment Agreement was scanned into [email or web address] and attached to record. hs2 06:30 REGULAR DIET PLASTIC STEPHENS+DIET ordered. EDMS 07:58 Drug Eval Toxicology ED Only Reviewed. mm11 08:22 ED course: pt signed out to me. cta when listening to lungs. pt with no complaints. ml pending psych disposition. pt with no complaints. mlg. 08:35 Ventolin Inhaler 2 puffs Inhalation every 4 hours ordered. ml 09:05 Consult PFS/PSA/Billposter complete. rb 10:09 Consult PFS/PSA/Billposter: Patient's case requires discussion with on-call rb Psychiatrist complete. 10:09 PSA/PFS to call Nursing Die Attacher, to [place] patient data [place] Safe [place] if patient rb involuntarily admitted or transferred for SI or HI complete. 11:18 REGULAR DIET PLASTIC STEPHENS+DIET ordered. EDMS 11:35 predniSONE 60 mg PO once; administer with food or milk ordered. ml 13:16 Ventolin Inhaler 2 puffs Inhalation once ordered. dsf 16:41 REGULAR DIET PLASTIC STEPHENS+DIET ordered. EDMS 16:58 Ventolin Inhaler 2 puffs Inhalation once ordered. dsf 19:24 Awaiting: The patient is awaiting psychiatric admission or transfer. All labs and mm11 investigations have been reviewed. The vital signs have been reviewed. The patient remains medically cleared for disposition. 21:50 Ventolin Inhaler 2 puffs Inhalation once ordered. ka4 22:07 diphenhydrAMINE 25 mg PO once ordered. mm11 11/12 02:01 Ventolin Inhaler 2 puffs Inhalation once ordered. ka4 03:53 diphenhydrAMINE 25 mg PO once ordered. mm11 04:08 -Blood Culture Reviewed. mm11 04:08 BLOOD CULTURES Reviewed. mm11 04:08 Chest, 2 View (pa\E\lat) Reviewed. mm11 04:08 EKG-ADULT Reviewed. mm11 04:33 REGULAR DIET ROOM SERVICE ED+DIET ordered. EDMS 05:56 Ventolin Inhaler 2 puffs Inhalation once ordered. ka4 07:04 levofloxacin 750 mg PO once ordered. mm11 11:05 REGULAR DIET PLASTIC STEPHENS+DIET ordered. EDMS 11:07 Nicotine Patch 21 mg/24 hr 1 applic Transdermal once ordered. mk4 11:48 REGULAR DIET ROOM SERVICE ED+DIET ordered. EDMS 12:10 Admit to [facility]: ordered. EDMS 12:11 [facility] Legal paperwork was scanned into [email or web address] and attached to record. ml4 13:02 T-Sheet-- Draft Copy was scanned into [email or web address] and attached to record. gb 13:10 Ventolin Inhaler 2 puffs Inhalation once ordered. mk4 11/13 13:51 ECG/EKG was scanned into [email or web address] and attached to record. gb Administered Medications: 11/11 03:57 Drug: Albuterol-Ipratropium 1 neb [ipratropium-albuterol 0.5 mg-3 mg(2.5 mg base)/3 mL lf2 nebulization soln (1 neb)] Route: Nebulizer; 04:00 Drug: Albuterol-Ipratropium 1 neb [ipratropium-albuterol 0.5 mg-3 mg(2.5 mg base)/3 mL lf2 nebulization soln (1 neb)] Route: Nebulizer; 04:10 Drug: Albuterol-Ipratropium 1 neb [ipratropium-albuterol 0.5 mg-3 mg(2.5 mg base)/3 mL lf2 nebulization soln (1 neb)] Route: Nebulizer; 04:11 Drug: Solu-MEDROL 125 mg [Solu-Medrol 500 mg intravenous solution (125 mg)] Route: IVP; lf1 Site: left forearm; 06:28 Drug: levofloxacin 750 mg [levofloxacin 250 mg tablet (3 tabs)] {Note: 1-500mg tab and cp1 1-250mg tab given.} Route: PO; 09:08 Drug: Ventolin 2 puffs [Ventolin HFA 90 mcg/actuation aerosol inhaler (2 puffs)] Route: dsf Inhalation; 13:16 Drug: Ventolin 2 puffs [Ventolin HFA 90 mcg/actuation aerosol inhaler (2 puffs)] Route: dsf Inhalation; 17:00 Drug: Ventolin 2 puffs [Ventolin HFA 90 mcg/actuation aerosol inhaler (2 puffs)] Route: dsf Inhalation; 18:36 Drug: predniSONE 60 mg [prednisone 20 mg tablet (3 tabs)] Route: PO; dsf 21:50 Drug: Ventolin 2 puffs [Ventolin HFA 90 mcg/actuation aerosol inhaler (2 puffs)] Route: ka4 Inhalation; 22:19 Drug: diphenhydrAMINE 25 mg [diphenhydramine 25 mg capsule (1 caps)] Route: PO; 4 11/12 01:57 Follow up: Response: No Adverse Reaction [facility] 02:11 Drug: Ventolin 2 puffs [Ventolin HFA 90 mcg/actuation aerosol inhaler (2 puffs)] Route: ka4 Inhalation; 04:00 Drug: diphenhydrAMINE 25 mg [diphenhydramine 25 mg capsule (1 caps)] Route: PO; [facility] 04:32 Follow up: Response: No Adverse Reaction; No significant change. [facility] 05:56 Drug: Ventolin 2 puffs [Ventolin HFA 90 mcg/actuation aerosol inhaler (2 puffs)] Route: ka4 Inhalation; 07:59 Drug: levofloxacin 750 mg [levofloxacin 250 mg tablet (3 tabs)] Route: PO; [facility] 11:18 Drug: Nicotine 1 applic [nicotine 21 mg/24 hr daily transdermal patch (1 patches)] 4 Route: Transdermal; Site: left upper arm; 13:10 Drug: Ventolin 2 puffs [Ventolin HFA 90 mcg/actuation aerosol inhaler (2 puffs)] Route: 4 Inhalation; Signatures: Dispatcher [employer] EDNE Matthew Arita MD MD ml Kori Lutz, PSA PSA rb Shilpa Monsalve, Reg Reg gb Lenora KamalaRachaelJoan, [place] Work[employer] ml3 Beatriz Duff, PSA PSA ml4 Beth Molina,RN RN lf1 Lupillo Guo DO DO mm11 Luis Antonio Middleton MD MD br1 Trinity NarayanRN RN dsf Livia Pitts RN RN mk4 Erin Ulloa LPN LPN ka4 Viviana South, Reg Reg hs2 Alphonso Caballero RNk Pamella Henson LPN cp1 Beth Manning RT lf2 The chart was reviewed and I authenticate all verbal orders and agree with the evaluation and treatment provided.Attachments: 11/11 06:22 [facility] Payment Agreement hs2 13:02 T-Sheet-- Draft Copy 11/13 13:51 ECG/EKG Chart Complete MTDD
[2016-11-14 18:00] VITALS: BP 126/70
--- NOTE | 2016-11-14 18:00 | CR.PDOC ---
[facility] Consultation General Date of Consultation: 11/14/16 Consultation Report For: Naina Chen Chief Complaint The patient is a 50-year-old male admitted with a reason for visit of Unspecified Depressive Disorder. Pain management is asked to see patient for bilateral foot pain. History of Present Illness Godwin Harrington is a 50-year-old gentleman who has previously been seen at pain management clinic here at [facility]. His last visit was with Dr. Ashley on 05/12/2016 at which time he did have a by lateral calcaneal nerve block completed. Mr. Amado began experiencing pain in both feet following a crush injury when he was 14 years old. Since then he has been seen by multiple podiatrists, Dr. Bowie at [facility], and here at [facility] pain center. Currently he is following with Dr. Stern for podiatry. He states that his pain in his feet had been under fairly good control prior to his admission to [facility] but it did increase as initially he was not allowed any shoes. He has now been given shoe privileges and he reports his pain is better controlled. He rates the pain as a 5-7/10 describing it as throbbing aching and burning. He notes that his feet swell as the day progresses. He also reports a bluish discoloration particularly as the day progresses. He notes that the worst area of pain is along the medial aspect of both feet. He denies any numbness in his feet. States that he has been working. Reports that after his injection to his feet in May 2016 he had marked increase in pain in the area which lasted for 2 weeks. At this point he was started on "red apple cider vinegar with mother", which was recommended by a friend and which has produced significant pain control ever since. He reports he has used some intermittent hydrocodone which he states he takes after his workday. He does admit to some alcohol use but states that this has not been on a daily basis. 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 Home Medications Scheduled PRN Albuterol Sulfate (Proair Hfa) 108 Mcg/Act Aer 2 PUFFS INH Q4H PRN PRN SOB/ WHEEZING (Reported) Albuterol Sulfate (Albuterol Sulfate) 2.5 Mg/3 Ml Nebu 2.5 MG INH Q4H PRN PRN SHORTNESS OF BREATH (Reported) Allergies Coded Allergies: Codeine (Verified Adverse Reaction, Intermediate, ABDOMINAL PAIN, 02/08/13) Past Medical History Past Medical History Medical History Past medical history includes COPD with hospitalization for exacerbation in February 2016. History of hepatitis C and is status post treatment. History of anxiety and depression. History of C3-7 cervical fracture 1986. History of alcohol abuse. Social History Psychosocial History: Anxiety, Depression, Suicidal thoughts (this is the reason for admission.) Alcohol: other (history of alcohol abuse.) Drugs: denies (denies use of cocaine and amphetamines heroin or other IV drugs. ), marijuana (states has not used any in several months.), prescription drugs ( reports he has received these from friends or from "the street") Review of Systems Subjective Constitutional: Reports: fatigue, Denies: unexplained weight loss HEENT: Denies: head aches, hearing problems, vision problems Skin: Reports: change in color (to both feet. Particularly along the medial aspect.), change in hair/nails (fungal infection to nails), jaundice, other ( skin abrasion over the top of the right foot.), Denies: rash Pulmonary: Reports: cough, hemoptysis, shortness of breath, wheezing ( occasional), Denies: dyspnea Cardiovascular: Denies: chest pain, edema, palpitations Gastrointestinal: Denies: loss of bowel control Genitourinary: Denies: dysuria, hematuria, loss of bladder control Hematologic: Denies: blood dyscrasias, easy bleeding, easy bruising Endocrine: Denies: Diabetes mellitus Musculoskeletal: Reports: foot pain (throbbing burning pain over the medial aspect of both feet and over the heels.), spasms Neurological: Denies: change in speech, concussion, confusion, headache, migraines, numbness, other, parestesias, pre-existing deficit, seizures, tingling, tremors, uncoordinated, weakness Psych: Reports: anxiety, depression, thoughts of self harm (reason for admission.), Denies: thoughts of harming other Physical Examination Physical Examination Vital Signs/I&O Vital Signs Date Time Temp Pulse Resp B/P Pulse Ox O2 Delivery O2 Flow Rate FiO2 11/14/16 12:00 97.5 86 18 135/74 11/12/16 14:56 94 Room Air General Exam: Positive: alert, attentive, no acute distress, oriented times three, talkative Visual Analog Score (VAS) For: 7 ENT EXAM: Positive: normocephalic Neck Exam: Negative: Lymphadenopathy, Thyromegaly Chest Exam: Positive: Clear to auscultation, Wheezing (few wheezes on exertion) , Negative: Rales Heart Exam: Positive: Normal S1, S2, Regular rate and rhythm, Negative: Murmurs, Rubs Extremity Exam: Positive: Edema (trace to 1+ edema over the calcaneus and tibial navicular junction.), Normal pulses (pedal and dorsal pedal pulses 1+ bilaterally.), Other (2 cm in diameter lesion noted over the Center dorsum of the right foot.), Tenderness (tenderness with palpation over the tibial navicular junction.) Skin Exam: Positive: Dry, Warm, Negative: Rashes Neuro Exam: Positive: Deep tendon reflexes 1+, Gait is antalgic (stepping in nature.), Muscle Strength U/L Ext., Normal Tone, Other (hypersensitivity with palpation over the plantar surface of both feet.) Laboratory Data CBC/BMP Laboratory Tests 11/14/16 07:18 Red Blood Count 4.45, Mean Corpuscular Volume 101.4 H, Mean Corpuscular Hemoglobin 32.6, Mean Corpuscular Hemoglobin Concent 32.1, Red Cell Distribution Width 14.9 H Microbiology Microbiology 11/11/16 Blood Culture - Preliminary, Resulted No Growth after 72 hours. All specime... 11/11/16 Blood Culture - Preliminary, Resulted No Growth after 72 hours. All specime... Assessment/Plan Assessment 1. Bilateral foot pain. 2. Bilateral plantar fascial syndrome. Plan Recommendation and plan: Patient reports that he has received the best pain control from daily ingestion of apple cider vinegar with "mother" he states that this is available at [employer]. I did review the medical record and I do not see where he has had any imaging studies done of his lower extremities. I would recommend x-rays of both feet. It does appear on inspection there may be some collapse of the first metatarsal bilaterally. He also reports that the use of marijuana has been helpful. He is considering pursuing this in a legal state. At this time I would not recommend use of any opiates. He has been on many neuropathic pain medications and have found them to have either adverse effects or to just not be helpful. He does note ice packs to the feet can help with swelling. This is certainly reasonable. I did discuss with him the possibility of neuropathy secondary to long-term alcohol use. He is currently on thiamine and folic acid and a B complex vitamin may be helpful at discharge. Currently Mr. Amado is not interested in any interventional treatments. Dr. Ashley had previously suggested a peripheral nerve stimulator although this may not be an option under his insurance. Thank you Ms. Chen for allowing us to participate in the care of your patient Godwin Amado. Should you have any questions we'll be glad to discuss this with you at any time Ansley Milton Nov 14, 2016 18:00
--- NOTE | 2016-11-14 19:46 | IPN ---
DATE: 11/14/2016 TREATMENT: Mr. Amaod is diagnosed with unspecified depressive disorder, cannabis and alcohol use disorders, and is prescribed Lexapro 10 mg orally daily. Medication was started the day prior. In addition, he is provided with relevant therapeutic programming including group, individual and activities. He so far has been accepting the medications and tolerating same. Today on interview, he states that he is feeling much better and that he is no longer as depressed as he was. He says he is no longer experiencing suicidal thoughts, plan, or intention, and that he plans to followup with his outpatient mental health provider at [facility]. He denies any withdrawal features related to alcohol. OBSERVATION: His vital signs: Blood pressure 129/85, pulse 88, respirations 20, temperature 98.5. He is observed to be fairly groomed, having had a clean shave. He is noted to socialize adequately with his peers and does not appear to be in any form of distress. His speech is of normal volume, rate, rhythm. No abnormal thought process and delusions are denied. He is not observed responding to internal stimuli. His mood is reported to be better. Affect is pleasant. He denies suicidal thoughts, plan, or intent. ASSESSMENT: The patient is responding to treatment and currently does not appear to have any features related to alcohol withdrawal. PLAN: He will be continued on the current treatment and will be reassessed ongoing. If stable, in the next 24-48 hours he will be scheduled for discharge.
[2016-11-14] MEDS: traZODone 50 MG TAB PO PRN (22:55)
[2016-11-15] MEDS: IBUPROFEN 400 MG TAB PO PRN ×2 (04:41→11:36)
[2016-11-15 06:06] VITALS: BP 135/73
[2016-11-15] MEDS: ESCITALOPRAM OXALATE 10 MG TAB (LEXAPRO) PO SCH (08:27)
[2016-11-15] MEDS: NICOTINE 21MG/24HR 1 EA TRANSDERMAL TD SCH (08:27)
[2016-11-15] MEDS: THIAMINE 100 MG TAB PO SCH (08:27)
[2016-11-15] MEDS: FOLIC ACID 1 MG TAB PO SCH (08:27)
[2016-11-15] MEDS: MULTIVITAMINS/MINERALS THERAP 1 TAB PO SCH (08:27)
[2016-11-15] MEDS: ACETAMINOPHEN TAB 650MG DOSE (2X325MG) PO PRN (08:29)
[2016-11-15] MEDS: ALBUTEROL 90 MCG/ACT 8GM HFA INHALER INH PRN (08:59)
--- NOTE | 2016-11-15 09:25 | REP ---
Clinical: Pain. Technique: AP, lateral, bilateral oblique views of the right and left foot. Findings: Age-related degenerative changes are appreciated (right greater than left). No acute fracture or dislocation. No overt osteoarthritic degenerative changes. No periarticular calcifications. No calcaneal heel spurs. Impression: Age-related degenerative changes. Signed by Bonifacio Villalobos MD 11/15/2016 09:17 A
[2016-11-15 09:45] VITALS: BP 133/78
[2016-11-15] MEDS ORDERED: NICO21PAT TD (10:00)
[2016-11-15] MEDS ORDERED: ESCI10TA2 PO (11:29)
--- NOTE | 2016-11-15 11:54 | MHDS ---
DATE OF ADMISSION: 11/12/2016 DATE OF DISCHARGE: 11/15/2016 HISTORY: The patient is a 50-year-old [place] man who presented to the emergency department after reportedly putting a gun in his mouth in a suicide bid but stopped after he had thought about the seriousness of such an action. He instead called 911 for help and was brought to the emergency department. The patient reports that he has had a long history of depression and alcohol abuse and had been drinking heavily all week leading to his emergency room visit. He said that he felt very guilty for relapsing into alcohol use, compounded by stressors that included severe financial difficulties, inability to buy holiday presents for his children and grandchildren, and relational conflicts with his girlfriend. He reported that his depression characterized by depressed mood, insomnia, occasional feeling of hopelessness and helplessness has been on and off and he previously had benefited from treatment with Lexapro. However, he has not had the medication in more than 4 years due to problems affording to pay out of pocket as he has no health insurance coverage. PAST PSYCHIATRIC HISTORY: His past psychiatric history is notable for history of depression since he was [id number] during a period of incarceration. He stated that he attempted to hang himself while in longterm at the time and was admitted to [facility]. Upon release, he checked himself later into [facility] and was hospitalized for 2 weeks and treated for depression. He reported that he has had on and off outpatient treatment, mostly in combination with alcohol related ones , including those at [facility] and [facility] on [facility] with Dr. Abdi. SUBSTANCE ABUSE HISTORY: Patient has an extensive use of alcohol involving heavy consumption of beer and liquor. He reported that he was at some point, about 30 years ago, completely abstinent, having attended alcohol program that included [facility]. However, he relapsed again about 5 years ago and from that time on, he has had occasional relapses. His current relapse is that leading to the current admission. Reported withdrawal symptoms that included delirium tremens. He has had at least one alcohol-related conviction, the second involving altercation with police officers while drunk. In addition to alcohol use, he also reported extensive use of marijuana. He smokes more than a pack of cigarettes daily. MEDICAL HISTORY: Is notable for bilateral foot trauma, chronic obstructive pulmonary disease and previous treatment for hepatitis C. No reported allergies. Please refer to admission physical, and history and physical for social and family related histories. HOSPITAL COURSE: On admission, he was noted to be disheveled, alert, calm and cooperative, alert and oriented to time, place and person. He related respectfully. No abnormal thought process or contents evident, and his mood was noted to be depressed. However, he denies suicidal or homicidal ideation. Admitting diagnosis was unspecified depressive disorder. He was restarted on Lexapro, which he said he had previously improved on, 10 mg orally daily. In addition, he was provided with group, individual and activity therapies. Over the course of his stay, he adjusted relatively well and posed no danger to self or others. He socialized normally with his peers and was not a management problem on the unit. He tolerated medication and no adverse medication effect noted. He currently is stable with no evidence of being a danger to self or others and seemed to have no severe depressive symptomatology currently. MENTAL STATUS ON DISCHARGE: Vital signs: Blood pressure 120/70, pulse 90, temperature 96.8, respiration 20. He is noted to be adequately groomed and appropriately dressed in his street clothing. No abnormal movements are noted. His speech is fluent. Thought process is coherent and goal directed. No delusional contents evident. He denies hallucination. His mood is currently not severely depressed and note elated. He denies suicidal thoughts, plan or intent, Cognitively, he is alert and oriented in all spheres. DISCHARGE DIAGNOSIS: Unspecified depressive disorder. DISCHARGE MEDICATION: - Lexapro 10 mg orally daily The patient is instructed on the need to followup within 5-7 days with his primary care provider. ANDRE
== END 2016-11-15 12:58 | disposition home or self-care (01) | DRG 754 ==
LOC: M ED 03:08 → M PSY 11-12 13:59
PROVIDERS: ADMIT Psychiatry & Neurology Psychiatry; ATTEND Psychiatry & Neurology Psychiatry
DX: F32.9 Major depressive disorder, single episode, unspecified (principal); J44.9 Chronic obstructive pulmonary disease, unspecified; M54.2 Cervicalgia; F17.200 Nicotine dependence, unspecified, uncomplicated; F10.10 Alcohol abuse, uncomplicated; B18.2 Chronic viral hepatitis C